=== PATIENT | female | born 1980 | race African-American/Black ===

== ENCOUNTER 2019-09-07 01:53 | Outpatient (CLI) | payer OTHER, SELFPAY ==
[2019-09-07 23:05] LABS: SARS-CoV-2 RNA PCR Negative
== END 2019-09-07 01:54 | disposition home or self-care (01) ==
LOC: ANHCOVIDDT 01:53
PROVIDERS: Visit Provider Obstetrics & Gynecology
DX: Z01.812 Encounter for preprocedural laboratory examination (principal); Z11.59 Encounter for screening for other viral diseases
CPT/HCPCS: 87635; C9803; U0003

== ENCOUNTER 2019-09-10 01:21 | Day surgery (SDC) | payer OTHER, SELFPAY ==
[2019-08-27 13:59] VITALS: BMI 34.9
[2019-09-10] VITALS (8 sets, daily range): BP systolic 113–141; BP diastolic 64–81; PULSE 53–77; RESP 10–18; TEMP 36.1–36.6; O2SAT 96–100
[2019-09-10] MEDS: ACETAMINOPHEN 500 MG TABLET 1000 MG PO (06:25)
[2019-09-10] MEDS: LACTATED RINGERS 1,000 ML 30 ML IV CONT ×2 (06:30→08:13)
[2019-09-10] MEDS: KETOROLAC 15 MG/ML VIAL (*BKC) IV PUSH (06:30)
--- NOTE | 2019-09-10 06:46 | WPDHPUPDATE1 ---
History and Physical Update Update Date/Time: 09/10/19 06:46 History and Physical has been reviewed, including an updated exam of the patient. There are NO changes in the patient's condition. Risks, benefits, and alternatives have been discussed and questions answered. Patient agrees to proceed with procedure.
--- NOTE | 2019-09-10 07:04 | WPDANESEPPF ---
Anes - Initial Pre Proc Eval Procedure: Operation Date: 09/10/19 07:30 Proposed Procedures p Laparoscopic Bilateral Tubal Sterilization With Cautery - Michele Crane MD s Hysteroscopy With Ablation - Michele Crane MD Date/Time: 09/10/19 07:04 Surgeon: Michele Crane MD Pre Op Diagnosis: Female Sterilization, Menorrhagia Patient Data Age: 39 Gender: F Height: 5 ft 3 in Weight: 88.1 kg Last Vital Signs Temp 97.8 F 09/10/19 06:16 Pulse 77 09/10/19 06:16 Resp 18 09/10/19 06:16 BP 123/73 09/10/19 06:16 Pulse Ox 99 09/10/19 06:16 Allergies Allergy/AdvReac Type Severity Reaction Status Date / Time No Known Allergies Allergy Mild Unverified 09/10/19 07:01 Home Medications Medication Instructions Recorded Confirmed Type No Home Medications 08/27/19 08/27/19 History Patient hx anesthesia problems: none Family hx anesthesia problems: none [facility] Past Medical History Medical History (Updated 09/10/19 @ 07:04 by Bg Srivastava MD) Anemia Social History Social History Smoking packs per day: 0.5 Smoking cigarettes per day: 10.0 Years smoked: 15 Smoking pack-years: 7.50 Smoking status: Current every day smoker Tobacco type: cigarettes Alcohol intake: current Drinks per week: 1 Spiritual care concerns: No Anes - Eval Final PreProcedure Day of Procedure 09/10/19 07:04 Patient weight: normal Heart: regular rate and rhythm Lungs: clear to auscultation Airway: Mallampati scale class II Neurological: alert and oriented Last oral intake: >/= 8 hours ASA classification: II Emergent: no Anesthetic plan: proceed Anesthesia type and monitoring: general ETT and standard monitoring Informed Consent: The patient's anesthetic plan and its attendant risks and benefits were discussed with the patient/family/POA. Questions were solicited and answers provided to the satisfaction of the patient/family/POA.
--- NOTE | 2019-09-10 08:06 | SUR.OPER ---
250ns in, 200ns out. aware
--- NOTE | 2019-09-10 08:28 | P.OP_ITS ---
Procedure Note - Detailed Date of procedure: 09/10/19 Pre-op diagnosis: Female Sterilization, Menorrhagia Post-op diagnosis: same Procedure performed: Laparoscopic bilateral tubal ligation, Endometrial Ablation Description of procedure: Patient was taken the operating room. She has prepped draped in the dorsal lithotomy position after induction of general anesthesia. A 5 mm abdominal incision was made in left upper quadrant of the abdomen with scalpel. A 5 mm trocars inserted the intra-abdominal cavity under direct visualization of the scope. Pneumoperitoneum was achieved. A 5 mm periumbilical incision was made using a scalpel on the abdominal scan. A 5 mm trocar was inserted the intra-abdominal cavity under visualization of the scope. The fallopian tube was grasped with the bipolar cautery in the ampullary region. It was completely desiccated in a 1.5 cm area of the fallopian tube. This was performed in identical fashion on the contralateral side. The instruments were withdrawn. The pneumoperitoneum was reduced. The trocars were removed. The skin was closed with subcuticular 4 Monocryl. This incisions were covered with Dermabond. Our attention was then turned to the endometrial ablation portion of the proc edure. A speculum was placed in the vagina. The cervix was grasped with a tenaculum. The cervix was dilated to approximately 8 mm with Lovelace dilators. The hysteroscope was inserted. And the below findings were noted. Measurements of the cervix were taken using the uterine sound and the hysteroscope. The intrauterine cavity measurements were entered into the hand piece of the device. The device was inserted the intrauterine cavity. The array was expanded. The balloon cuff was inflated. The uterus was airtight. The energy and safety cycles within initiated. They were completed under 3 minutes. The balloon cuff was collapsed, the array was collapsed, and the device was removed the uterine cavity. the hysteroscope was reinserted and the cavity was well desiccated, it was clearly observed. Hysteroscope was withdrawn. The tenaculum was removed. The speculum was removed. The patient tolerated the procedure well. She was taken to recover room in stable condition. Anesthesia: GETA Surgeon: Michele Crane MD Estimated blood loss (mL): 10 Drains: No Packing: No Pathology: none sent Complications: No immediate complications Condition: stable Disposition: PACU Findings: Normal female pelvic anatomy. Normal vulva, vagina and endometrial cavity. Well desiccated endometrial cavity at the end of the procedure.
[2019-09-10 09:46] LABS: Hematocrit 30.9 % (37.0-47.0); Hemoglobin 9.5 g/dL (12.0-15.0); Mean Corpuscular HGB Conc 30.7 g/dl (32-36); Mean Corpuscular Hemoglobin 22.3 pg (26-34); Mean Corpuscular Volume 72.5 fl (80-100); Mean Platelet Volume 11.1 fl (7.4-10.4); Platelet Count Result 292 k/mm3 (150-375); Red Blood Count 4.26 M/mm3 (4.2-5.4); Red Cell Distribution Width 18.1 % (11.5-14.5); White Blood Count 6.8 K/mm3 (4.5-10.0)
== END 2019-09-10 10:01 | disposition home or self-care (01) ==
PROVIDERS: Visit Provider Obstetrics & Gynecology
PROC: (CPT 58671; principal; 2019-09-10 07:30)
PROC: 0U5B8ZZ Destruction of Endometrium, Via Natural or Artificial Opening Endoscopic (ICD-10-PCS; CPT 58563; 2019-09-10 07:30)
DX: Z30.2 Encounter for sterilization (principal); N92.0 Excessive and frequent menstruation with regular cycle; F17.210 Nicotine dependence, cigarettes, uncomplicated
CPT/HCPCS: 58670; 58563; 36415; 85027; A9270; J0330; J1100; J1885; J2250; J2405; J2704; J3010; J7120

== ENCOUNTER 2020-07-04 21:56 | Emergency (ER) | payer OTHER, SELFPAY ==
--- NOTE | ~2020-07-04 | CT_ITS ---
EXAMINATION: CT abdomen pelvis w con DATE: 07/05/2020 00:06 INDICATION: Left lower quadrant abdominal pain TECHNIQUE: Computed tomography (CT) of the abdomen and pelvis was performed with 100 mL Omnipaque-350 intravenous contrast. Automated exposure control and iterative reconstruction technique were employe d. The dose-length product was 815.09 mGy-cm. COMPARISON: None FINDINGS: Minimal dependent atelectasis in the bilateral lower lobes. Heart size is normal. No pericardial or p leural effusion. A couple indeterminate hepatic lesions, the larger measuring 1.7 cm which are greate r than fluid attenuation but of lower attenuation in the surrounding contrast-enhanced liver. Gallbla dder, spleen, pancreas, bilateral adrenal glands and right kidney are normal. There are couple subcen timeter low-attenuation left renal cyst. 2.9 cm subserosal fibroid along the anterior lower uterine s egment. Mild wall thickening of the incompletely distended bladder. Bowels including the appendix are normal. Small amount of likely physiologic free fluid in the cul-de-sac. No pathologically enlarged abdominal or pelvic lymphadenopathy. Small bone island at the right femoral head. IMPRESSION: 1. Mild wall thickening in the incompletely distended bladder which could be due to partially decompr essed state or cystitis. Correlate with urinalysis. 2. Small amount of likely physiologic free fluid in the cul-de-sac. 3. Couple indeterminate hepatic lesions the larger measuring 1.7 cm which in the absence of known leandra er disease or primary malignancy are most likely benign. Consider further evaluation with pre and pos tcontrast MRI. 4. Fibroid uterus. Reviewed, dictated and finalized at location A. IMPRESSION: 1. Mild wall thickening in the incompletely distended bladder which could be du e to partially decompressed state or cystitis. Correlate with urinalysis. 2. Small amount of likely physiologic free fluid in the cul-de-sac. 3. Couple indeterminate hepatic lesions the larger measuring 1.7 cm which in th e absence of known liver disease or primary malignancy are most likely benign. Consider further evaluation with pre and postcontrast MRI. 4. Fibroid uterus.
[2020-07-04 22:42] VITALS: BP 127/73; PULSE 66; RESP 16; TEMP 36.1; O2SAT 97
--- NOTE | 2020-07-04 23:04 | PC.NURSE ---
Patient states she has had her tubes tied and ablated.
--- NOTE | 2020-07-04 23:25 | ED.ABDPAIN ---
HPI - Abdominal Pain General Chief Complaint: Abdominal Pain Stated Complaint: abd pain Time Seen by Provider: 07/04/20 23:22 History of Present Illness HPI narrative: Abdominal pain since yesterday. LLQ along the inguinal ligament. Started yesterday after having a bowel movmeent. [place] like a severe menstraul cramp, but never went away. Associated with nausea when the pain is severe. Treid Midol with mild improvement. She reports that she had something similar in the past and she had to take antibiotics, but she is not sure what it was that she had. Related Data Allergies Allergy/AdvReac Type Severity Reaction Status Date / Time No Known Allergies Allergy Mild Verified 07/04/20 23:05 Review of Systems Review of Systems: All systems reviewed & are unremarkable except as noted in HPI and below Constitutional: Constitutional: Denies chills and Denies fever(s) Cardiovascular: Cardiovascular: Denies chest pain Respiratory: Respiratory: Denies dyspnea Genitourinary: Genitourinary: Denies hematuria, Reports nocturia and Denies dysuria Musculoskeletal: Musculoskeletal: Denies back pain Neurologic: Reports system reviewed and no additional complaints, except as documented [facility] Past Medical History Medical History Anemia Social History Social History Smoking packs per day: 0.5 Smoking cigarettes per day: 10.0 Years smoked: 15 Smoking pack-years: 7.50 Smoking status: Current every day smoker Tobacco type: cigarettes Alcohol intake: current Drinks per week: 1 Gender identity (if verbalized by the patient): Female Spiritual care concerns: No Exam Const: General: healthy appearing, no acute distress and alert Orientation/consciousness: patient oriented x3 HENMT: Head: normal to inspection Neck: Neck: normal visual inspection Resp: Effort & Inspection: normal respiratory effort Auscultation: clear to auscultation bilaterally, no rales, no rhonchi and no wheezes Cardio: Jugular venous distension: no JVD Rate: regular rate Rhythm: regular rhythm Heart sounds: no murmurs GI: Inspection: non-distended GI Palp: Yes Soft to palpation, Yes Tenderness to palpation present (GI) (mild, LLQ), No Guarding due to palpation present (GI) and No Rebound tenderness present Auscultation: normal bowel sounds Skin: General skin exam: normal color Neuro: General: patient oriented x3 and moves all extremities Speech: normal speech Extrem: General: normal to inspection and no edema Psych: Appearance: grossly normal and well kempt Mental Status: mental status grossly normal Affect: normal affect Attitude: cooperative Course Vital Signs Vital signs: Vital Signs Temperature 36.1 C L 07/04/20 22:42 Pulse Rate 66 07/04/20 22:42 Respiratory Rate 16 07/04/20 22:42 Blood Pressure 127/73 07/04/20 22:42 Pulse Oximetry 97 07/04/20 22:42 Temperature 36.1 C L 07/04/20 22:42 Pulse Rate 60 07/05/20 01:42 Respiratory Rate 18 07/05/20 01:42 Blood Pressure 135/88 07/05/20 01:42 Pulse Oximetry 97 07/05/20 01:42 MDM - Abdominal Pain MDM Narrative Medical decision making narrative: UA suspicious for UTI. CT also shows bladder wall thickening. Differential Diagnosis Differential diagnosis: Likely calculus of kidney, constipation, diverticulitis and other (UTI) Medical Records Attestation: I reviewed the patient's medical records. Lab Data Attestation: I reviewed the patient's lab results. Result diagrams: 07/04/20 23:21 07/04/20 23:21 Labs: Lab Results 07/04/20 07/04/20 07/04/20 Range/Units 23:21 23:21 23:21 WBC 9.5 (4.5-10.0) K/mm3 RBC 4.43 (4.2-5.4) M/mm3 Hgb 11.7 L (12.0-15.0) g/dL Hct 36.0 L (37.0-47.0) % MCV 81.3 (80-100) fl MCH 26.4 (26-34) pg MCHC 32.5 (32-36) g/dl RDW 14.4 (11.5-14.5
[2020-07-04 23:36] LABS: Basophils Percent Auto 0.3 % (0.2-1.2); Eosinophils Absolute Auto 0.1 K/mm3 (0-0.3); Eosinophils Percent Auto 1.3 % (0-4.4); Hemoglobin 11.7 g/dL (12.0-15.0); Immature Granulocyte Absolute 0.02 K/mm3 (0.00-0.031); Immature Granulocyte Percent A 0.2 % (0-0.5); Lymphocytes Absolute Auto 3.35 K/mm3 (0.9-3.2); Lymphocytes Percent Auto 35.4 % (18.3-44.2); Mean Corpuscular HGB Conc 32.5 g/dl (32-36); Mean Corpuscular Hemoglobin 26.4 pg (26-34); Mean Corpuscular Volume 81.3 fl (80-100); Mean Platelet Volume 11.4 fl (7.4-10.4); Monocytes Absolute Auto 0.7 K/mm3 (0.1-0.6); Monocytes Percent Auto 7.6 % (2.6-8.5); Neutrophils Absolute Auto 5.2 K/mm3 (1.3-6.7); Neutrophils Percent Auto 55.2 % (45.5-73.1); Platelet Count Result 320 k/mm3 (150-375); Red Blood Count 4.43 M/mm3 (4.2-5.4); Red Cell Distribution Width 14.4 % (11.5-14.5); White Blood Count 9.5 K/mm3 (4.5-10.0)
[2020-07-04 23:39] LABS: Alanine Aminotransferase 13 U/L (4-35); Albumin Level 3.8 g/dL (3.5-5.1); Alkaline Phosphatase 57 U/L (38-126); Anion Gap 6 mmol/L (8-16); Aspartate Amino Transferase 26 U/L (14-36); Bilirubin,Total 0.3 mg/dL (0.2-1.3); Blood Urea Nitrogen 13 mg/dL (7-17); Calcium 9.5 mg/dL (8.4-10.2); Carbon Dioxide 24 mmol/L (22-30); Chloride 110 mmol/L (98-107); Estimated CRCL calculation 87 ml/min; Estimated Glomerular Filt Rate > 60; Glucose 109 mg/dL (65-105); Lipase 46 U/L (23-300); Potassium 3.6 mmol/L (3.4-5.0); Sodium 140 mmol/L (137-145)
[2020-07-04 23:41] LABS: Add Urine Microscopic? YES; Appearance Urine Cloudy (Clear); Bacteria Urine Trace /hpf; Bilirubin Urine Negative (Negative); Blood Urine 1+ (Negative); Color Urine Yellow (Yellow); Glucose Urine UA Negative (Negative); Ketones Urine Negative (Negative); Leukocyte Esterase Ur 2+ LEU/UL (Negative); Mucus Urine Rare /lpf; Nitrate Urine Negative (Negative); Protein Urine Negative (Negative); Specific Grav Ur 1.023 (1.001-1.035); Squamous Epithelial Cell Urine Many /hpf (Few)
--- NOTE | 2020-07-04 23:53 | PC.NURSE ---
Patient being taken to CT.
[2020-07-05] VITALS (9 sets, daily range): BP systolic 130–141; BP diastolic 67–93; PULSE 60–62; RESP 18; O2SAT 94–100
[2020-07-05] MEDS: MORPHINE SULFATE (*CRX) 2 MG/ML INJ IV PUSH (00:17)
[2020-07-05] MEDS: NITROFURANTOIN MONOHYD MACROCR 100 MG CAP PO (00:54)
== END 2020-07-05 01:40 | disposition home or self-care (01) ==
PROVIDERS: Emergency Provider Emergency Medicine
DX: N39.0 Urinary tract infection, site not specified (principal); D64.9 Anemia, unspecified; F17.210 Nicotine dependence, cigarettes, uncomplicated; D25.9 Leiomyoma of uterus, unspecified; K76.9 Liver disease, unspecified
CPT/HCPCS: 36415; 74177; 80053; 81001; 81025; 83690; 85025; 87077; 87086; 87088; 87186; 96374; 99284; A9270; J2270; Q9967

== ENCOUNTER 2020-08-20 15:49 | Emergency (ER) | payer OTHER, SELFPAY ==
--- NOTE | ~2020-08-20 | CT_ITS ---
EXAMINATION: CT abdomen pelvis w con DATE: 08/20/2020 18:50 INDICATION: Right-sided groin pain for one day TECHNIQUE: Computed tomography (CT) of the abdomen and pelvis was performed with 100 cc Omnipaque 350 intravenous contrast. The dose-length product was 571.84 mGy-cm. Automated exposure control and iter ative reconstruction technique were employed. COMPARISON: CT dated dated 07/04/2020. FINDINGS: There is dependent atelectasis of the lung bases. There are stable hypovascular lesions of the liver, likely benign. No significant vascular abnormality. No lymphadenopathy. There are multiple enhancing and hypoenhancing masses of the uterus, consistent with fibroids. The spleen, pancreas, adrenal glands and kidneys are unremarkable. Gallbladder is present. Nonobstruc tive bowel gas pattern. Small amount of free fluid in the pelvis. Bladder is unremarkable. No lymphad enopathy. No free air. No acute osseous abnormality. IMPRESSION: 1. No acute abdominal abnormality. 2: Fibroid uterus. Reviewed, dictated and finalized at location A.
--- NOTE | ~2020-08-20 | US_ITS ---
EXAMINATION: US pelvic complete w TV DATE: 08/20/2020 17:27 INDICATION: Left lower quadrant pain for 2 days Comparison:No prior studies for comparison. TECHNIQUE: Multiple transabdominal and endovaginal sonographic images of the pelvis performed. FINDINGS: The uterus measures 7.5 x 6.7 x 5.1 cm. The endometrial complex is not clearly visualized. There are no multiple nabothian cyst. There are multiple uterine fibroids, largest measuring up to 2. 7 cm. The right ovary measures 2.5 x 2.4 x 2 cm and the left ovary measures 3.5 x 2.1 x 1.7 cm. There are small follicles in each ovary. Normal doppler signal in both ovaries. There is no free fluid in the pelvis. There are no abnormal masses seen on either side. IMPRESSION: 1. Multiple uterine fibroids, largest measuring up to 2.7 cm. Endometrium is obscured by fibroid larson ges. Reviewed, dictated and finalized at location A. IMPRESSION: 1. Multiple uterine fibroids, largest measuring up to 2.7 cm. Endometrium is ob scured by fibroid changes.
[2020-08-20 16:06] VITALS: BP 147/90; PULSE 59; RESP 20; O2SAT 99
--- NOTE | 2020-08-20 16:24 | ED.ABDPAIN ---
HPI - Abdominal Pain General Chief Complaint: Abdominal Pain Stated Complaint: abdominal pain Time Seen by Provider: 08/20/20 16:00 Source: patient Mode of arrival: ambulatory Limitations: no limitations History of Present Illness HPI narrative: This is a 40 year old female that presents to the ER for LLQ abd/pelvic pain present since this morning. Reports a constant aching/pressure like pain. Reports it kind of feels like menstrual cramping. Reports it has worsened since onset which prompted her to be seen. Reports she had a similar occurrence earlier this year for which she was seen in the ER and was diagnosed with a UTI and followed up with her OB who reported she has fibroids. Denies fever, vomiting, diarrhea, hematochezia, dysuria or hematuria. Related Data Allergies Allergy/AdvReac Type Severity Reaction Status Date / Time No Known Allergies Allergy Mild Verified 08/20/20 20:11 Review of Systems Review of Systems: Narrative: CONSTITUTIONAL: Denies fever GASTROINTESTINAL: Reports abdominal pain, nausea. Denies vomiting, or diarrhea. GENITOURINARY: Denies dysuria or hematuria. All systems reviewed & are unremarkable except as noted in HPI and below PMFSH Past Medical History Medical History (Updated 08/20/20 @ 20:15 by Sruthi Child PA-C) Anemia Surgical History Surgical History (Updated 08/20/20 @ 16:30 by Sruthi Child PA-C) History of tubal ligation Social History Social History Smoking packs per day: 0.5 Smoking cigarettes per day: 10.0 Years smoked: 15 Smoking pack-years: 7.50 Smoking status: Current every day smoker Tobacco type: cigarettes Alcohol intake: current Drinks per week: 1 Gender identity (if verbalized by the patient): Female Spiritual care concerns: No Exam Narrative: Exam Narrative: GENERAL: Well-appearing, well-nourished, and in no acute distress. HEAD: Normocephalic, atraumatic. EYES: EOMI. CHEST: Clear to auscultation. No respiratory distress. No wheezes rales or rhonchi HEART: Regular rate and rhythm. No murmur heard. Normal peripheral pulses. ABDOMEN: Soft, nondistended, normal active bowel sounds. Tender to palpation in the LLQ, without guarding. No CVA tenderness EXTREMITIES: Normal range of motion. No edema. SKIN: Warm, dry, no rash. NEURO: No focal deficits. Alert and oriented x3. PSYCH: Normal mood and affect PELVIC: Normal external genitalia. Normal appearing cervix. Small amount of white cervical discharge. No CMT Course Vital Signs Vital signs: Vital Signs Pulse Rate 59 L 08/20/20 16:06 Respiratory Rate 20 08/20/20 16:06 Blood Pressure 147/90 H 08/20/20 16:06 Pulse Oximetry 99 08/20/20 16:06 Pulse Rate 59 L 08/20/20 18:57 Respiratory Rate 18 08/20/20 18:57 Blood Pressure 104/65 08/20/20 18:57 Pulse Oximetry 99 08/20/20 18:57 MDM - Abdominal Pain MDM Narrative Medical decision making narrative: Patient presents to the ER for left sided lower abdominal/pelvic pain. She is afebrile and nontoxic appearing. Vitals are stable. CBC is without leukocytosis. Metabolic panel without acute findings. UA with 4-6 WBCs, and leuk esterase, but also many squamous epithelial cells. Suspect a contaminated catch as patient is asymptomatic. Will send this for a culture. Pelvic exam is normal. Trichomonas was negative. Chlamydia/gonorrhea and genital culture were sent. Patient would like to follow-up for results. Does not wish to be presumptively treated. Pelvic US shows multiple uterine fibroids. No acute adnexal abnormality. Normal vascular flow to the ovaries. CT scan of the abdomen and pelvis is without acute findings. Patient was updated on case findings. Instructed to follow-up with her encapsulator for further results and evaluation. She is stable and felt appropriate for further outpatient evaluation. She was given warnings to return to the ER Lab Data Attestation:
[2020-08-20 16:34] LABS: Basophils Percent Auto 0.2 % (0.2-1.2); Eosinophils Absolute Auto 0.1 K/mm3 (0-0.3); Eosinophils Percent Auto 0.6 % (0-4.4); Hematocrit 38.9 % (37.0-47.0); Hemoglobin 12.2 g/dL (12.0-15.0); Immature Granulocyte Absolute 0.03 K/mm3 (0.00-0.031); Immature Granulocyte Percent A 0.4 % (0-0.5); Lymphocytes Percent Auto 26.1 % (18.3-44.2); Mean Corpuscular HGB Conc 31.4 g/dl (32-36); Mean Corpuscular Hemoglobin 26.3 pg (26-34); Monocytes Absolute Auto 0.5 K/mm3 (0.1-0.6); Monocytes Percent Auto 6.2 % (2.6-8.5); Neutrophils Absolute Auto 5.6 K/mm3 (1.3-6.7); Neutrophils Percent Auto 66.5 % (45.5-73.1); Platelet Count Result 289 k/mm3 (150-375); Red Blood Count 4.63 M/mm3 (4.2-5.4); Red Cell Distribution Width 14.6 % (11.5-14.5); White Blood Count 8.4 K/mm3 (4.5-10.0)
[2020-08-20 16:48] LABS: Alanine Aminotransferase 14 U/L (4-35); Albumin Level 4.2 g/dL (3.5-5.1); Alkaline Phosphatase 69 U/L (38-126); Anion Gap 9 mmol/L (8-16); Aspartate Amino Transferase 31 U/L (14-36); Bilirubin,Total 0.9 mg/dL (0.2-1.3); Blood Urea Nitrogen 11 mg/dL (7-17); Calcium 9.5 mg/dL (8.4-10.2); Carbon Dioxide 23 mmol/L (22-30); Chloride 105 mmol/L (98-107); Estimated CRCL calculation 113 ml/min; Estimated Glomerular Filt Rate > 60; Glucose 86 mg/dL (65-105); Lipase 37 U/L (23-300); Sodium 137 mmol/L (137-145)
[2020-08-20] MEDS: MORPHINE SULFATE (*CRX) 4 MG/ML INJ IV PUSH (17:19)
[2020-08-20] MEDS: ONDANSETRON INJ 4 MG/2 ML VIAL IV PUSH (17:19)
[2020-08-20 17:45] VITALS: BP 130/77; PULSE 56; RESP 18; O2SAT 98
[2020-08-20 18:28] LABS: Add Urine Microscopic? YES; Appearance Urine Cloudy (Clear); Bacteria Urine Trace /hpf; Bilirubin Urine Negative (Negative); Blood Urine 2+ (Negative); Color Urine Yellow (Yellow); Glucose Urine UA Negative (Negative); Ketones Urine 1+ mg/dL (Negative); Leukocyte Esterase Ur 2+ LEU/UL (Negative); Mucus Urine Rare /lpf; Nitrate Urine Negative (Negative); Protein Urine Negative (Negative); RBC Urine 21-50 /hpf (0-2); Squamous Epithelial Cell Urine Many /hpf (Few)
[2020-08-20 18:57] VITALS: BP 104/65; PULSE 59; RESP 18; O2SAT 99
[2020-08-20 20:08] VITALS: BP 119/73; PULSE 60; RESP 20; O2SAT 100
== END 2020-08-20 20:27 | disposition home or self-care (01) ==
PROVIDERS: Physician Assistant; Emergency Provider Emergency Medicine
DX: R10.2 Pelvic and perineal pain (principal); F17.210 Nicotine dependence, cigarettes, uncomplicated
CPT/HCPCS: 36415; 74177; 76830; 76856; 80053; 81001; 81025; 83690; 85025; 87070; 87086; 87088; 87491; 87591; 87808; 96374; 96375; 99284; J0131; J2270; J2405; Q9967

== ENCOUNTER 2020-10-28 02:42 | Day surgery (SDC) | payer OTHER, SELFPAY ==
[2020-10-15 12:16] VITALS: BMI 36.6
--- NOTE | 2020-10-28 07:29 | WPDANESEPPF ---
Anes - Initial Pre Proc Eval Procedure: Operation Date: 10/28/20 12:15 Proposed Procedures p Colonoscopy - Mykel Robertson MD Date/Time: 10/28/20 07:29 Surgeon: Mykel Robertson MD Pre Op Diagnosis: left lower abdominal quadrant pain Patient Data Age: 40 Gender: F Height: 1.57 m Weight: 90.9 kg Allergies Allergy/AdvReac Type Severity Reaction Status Date / Time No Known Allergies Allergy Mild Verified 10/28/20 11:27 Home Medications Medication Instructions Recorded Confirmed Type bupropion HCl 150 mg 24 hr tablet, 150 mg PO QAM #30 tablet 08/26/20 10/15/20 Rx extended release Patient hx anesthesia problems: none Family hx anesthesia problems: none PMFSH Past Medical History Medical History (Updated 10/28/20 @ 07:30 by Mac Palomino DO) Anemia Anxiety BMI 36.0-36.9,adult Constipation Depression Encounter to establish care History of colitis LLQ abdominal pain Tobacco abuse Surgical History Surgical History History of tubal ligation Family History Family History Father Hypertension Mother Hypertension Thyroid disorder Grandparent Hypertension Grandparent Hypertension Social History Social History Smoking packs per day: 0.5 Smoking cigarettes per day: 10.0 Years smoked: 12 Smoking pack-years: 6.00 Smoking status: Current every day smoker Tobacco type: cigarettes Alcohol intake: current Drinks per week: 1 Substance use: never Substance use type: does not use Living arrangements: with family Gender identity (if verbalized by the patient): Female Spiritual care concerns: No Anes - Eval Final PreProcedure Day of Procedure 10/28/20 07:29 Patient weight: obese Heart: regular rate and rhythm Lungs: clear to auscultation and normal air movement Airway: Mallampati scale class II Neurological: alert and oriented Last oral intake: >/= 8 hours ASA classification: II Emergent: no Anesthetic plan: proceed Anesthesia type and monitoring: general GIVS and standard monitoring Informed Consent: The patient's anesthetic plan and its attendant risks and benefits were discussed with the patient/family/POA. Questions were solicited and answers provided to the satisfaction of the patient/family/POA.
[2020-10-28 11:28] VITALS: BP 132/77; PULSE 65; RESP 18; TEMP 36; O2SAT 98; BMI 36.3
[2020-10-28] MEDS: LACTATED RINGERS 1,000 ML 150 ML IV CONT (11:43)
--- NOTE | 2020-10-28 12:03 | WPDHPUPDATE1 ---
History and Physical Update Update Date/Time: 10/28/20 12:03 History and Physical has been reviewed, including an updated exam of the patient. There are NO changes in the patient's condition. Risks, benefits, and alternatives have been discussed and questions answered. Patient agrees to proceed with procedure.
[2020-10-28 12:17] VITALS: BP 102/60; PULSE 79; RESP 16; O2SAT 97
[2020-10-28 12:27] VITALS: BP 90/59; PULSE 74; RESP 20; O2SAT 100
[2020-10-28 12:37] VITALS: BP 96/56; PULSE 64; RESP 19; O2SAT 100
== END 2020-10-28 12:46 | disposition home or self-care (01) ==
PROVIDERS: PCP Nurse Practitioner Family; Visit Provider Internal Medicine Gastroenterology
PROC: 0DJD8ZZ Inspection of Lower Intestinal Tract, Via Natural or Artificial Opening Endoscopic (ICD-10-PCS; CPT 45378; principal; 2020-10-28 12:15)
DX: R10.32 Left lower quadrant pain (principal); K64.8 Other hemorrhoids; F41.8 Other specified anxiety disorders; F17.210 Nicotine dependence, cigarettes, uncomplicated; E66.9 Obesity, unspecified; Z68.36 Body mass index [BMI] 36.0-36.9, adult
CPT/HCPCS: 45378; J2704; J7120

== ENCOUNTER 2021-11-12 09:11 | Outpatient (CLI) | payer OTHER, SELFPAY ==
--- NOTE | ~2021-11-12 | MM_ITS ---
EXAMINATION: MM screening philippe BI w mayra HISTORY: Screening mammogram TECHNIQUE: Craniocaudal and mediolateral oblique 3-D tomosynthesis images were obtained and synthetic 2-D images were generated. CAD analysis was submitted and interpreted. COMPARISON: No prior mammogram is available for comparison at this institution. BREAST PARENCHYMAL COMPOSITION: There are scattered areas of fibroglandular density. FINDINGS: There is no evidence of suspicious mass, calcification, or architectural distortion to sugg est malignancy in either breast. There has been no suspicious interval change. IMPRESSION: 1. No mammographic evidence of malignancy. 2. Recommend routine screening mammography in one year. BI-RADS Category 1: Negative Reviewed, dictated and finalized at location A.
== END 2021-11-12 09:12 | disposition home or self-care (01) ==
LOC: ANHIMG 09:12
PROVIDERS: PCP Nurse Practitioner Family; Visit Provider Nurse Practitioner Obstetrics & Gynecology
DX: Z12.31 Encounter for screening mammogram for malignant neoplasm of breast (principal)
CPT/HCPCS: 77063; 77067

== ENCOUNTER 2022-09-20 19:07 | Emergency (ER) | payer OTHER, SELFPAY ==
--- NOTE | ~2022-09-20 | CT_ITS ---
EXAMINATION: CT abdomen pelvis w con DATE: 09/20/2022 22:36 INDICATION: LLQ pain TECHNIQUE: Computed tomography (CT) of the abdomen and pelvis was performed with 100 mL Omnipaque-350 intravenous contrast. Automated exposure control and iterative reconstruction technique were employe d. The dose-length product was 908.73 mGy-cm. COMPARISON: 08/20/2020, 07/04/2020; pelvic ultrasound 08/20/2020. FINDINGS: Lower thorax: Unremarkable Liver: Stable cysts/hemangiomas Biliary/Gallbladder: Gallbladder is normal. No bile duct dilation. Pancreas: Mild atrophy. Spleen: Normal. Adrenals:No mass. Kidneys: Subcentimeter left lower pole hypodensity too small to characterize but most likely represen ts a cyst. No suspicious mass, obstructing stone, or hydronephrosis. GI tract: Mild distal esophageal and gastric wall edema. No small or large bowel dilation. Normal hoa endix. Mesentery/Peritoneum: No ascites, mass, or free air. Retroperitoneum: No mass. Pelvis: 3.1 x 4.2 x 5.2 cm multiloculated, peripherally enhancing fluid collection in the endometrial cavity of the uterine fundus. Suggestion of a tubular fluid-filled structure in the left adnexa. Mul tiple uterine fibroids. Normal urinary bladder. Small volume free pelvic fluid, within physiologic ra nge. Soft Tissues: Soft tissues and body wall unremarkable. Bones: No acute osseous finding. IMPRESSION: Multiloculated peripherally enhancing endometrial collection, may represent infection, carcinoma, ret ained products, or entrapped blood with uterine synechia. Possible enlargement of the left fallopian tube. Multiple uterine fibroids. Recommend pelvic ultrasound for further evaluation and gynecology consultation. Also consider pelvic MRI with and without contrast. Reviewed, dictated and finalized at [facility]. IMPRESSION: Multiloculated peripherally enhancing endometrial collection, may represent inf ection, carcinoma, retained products, or entrapped blood with uterine synechia. Possible enlargement of the left fallopian tube. Multiple uterine fibroids. Recommend pelvic ultrasound for further evaluation and gynecology consultation. Also consider pelvic MRI with and without contrast.
--- NOTE | ~2022-09-20 | US_ITS ---
Pelvic ultrasound. Clinical History: Abnormal uterus on CT scan Technique: Realtime transabdominal and transvaginal scanning of the pelvis was performed. Color flow Doppler and Doppler spectral analysis were performed. COMPARISON: CT performed earlier on 09/20/2022 Findings: The uterus is anteverted, and measures 8.9 x 6.4 x 7.9 cm. There is a complex area centrall y in the uterus measuring up to approximately 3.6 x 5.1 x 5.2 cm overall, with multiple complex cysti c areas within this lesion. Probable exophytic left-sided fibroid measures 4.8 x 3.8 x 5.2 cm. The right ovary measures 3.3 x 2.1 x 2.9 cm. No significant right ovarian or adnexal mass is seen. The left ovary measures 2.9 x 1.0 x 2.6 cm. No significant left ovarian or adnexal mass is seen. There is small amount of free fluid in the cul de sac. Impression: 5.2 x 3.6 x 5.1 cm area of complex cystic appearance centrally in the uterus, which correlates with f indings on CT scan performed earlier today. Precise etiology remains unclear, with diagnostic conside rations including hematoma/blood products, abscess,, necrotic/degenerative fibroid, or possibly other necrotic neoplasm. Consider hysteroscopy or other additional gynecologic workup/intervention. Additional probable left-sided exophytic fibroid measuring up to 5.2 cm in maximum diameter. Reviewed, dictated and finalized at [facility]. Impression: 5.2 x 3.6 x 5.1 cm area of complex cystic appearance centrally in the uterus, w hich correlates with findings on CT scan performed earlier today. Precise etiol ogy remains unclear, with diagnostic considerations including hematoma/blood pr oducts, abscess,, necrotic/degenerative fibroid, or possibly other necrotic brian plasm. Consider hysteroscopy or other additional gynecologic workup/interventio n. Additional probable left-sided exophytic fibroid measuring up to 5.2 cm in maxi mum diameter.
[2022-09-20 19:10] VITALS: BP 140/85; PULSE 80; RESP 16; TEMP 36.3; O2SAT 100
[2022-09-20 19:38] LABS: Alanine Aminotransferase 20 U/L (6-35); Albumin Level 4.3 g/dL (3.5-5.1); Alkaline Phosphatase 77 U/L (38-126); Anion Gap 10 mmol/L (8-16); Aspartate Amino Transferase 27 U/L (14-36); Bilirubin,Total 0.6 mg/dL (0.2-1.3); Blood Urea Nitrogen 11 mg/dL (7-17); Calcium 9.5 mg/dL (8.4-10.2); Carbon Dioxide 25 mmol/L (22-30); Chloride 103 mmol/L (98-107); Estimated CRCL calculation 117 ml/min; Estimated Glomerular Filt Rate > 60; Glucose 109 mg/dL (65-110); Lipase 36 U/L (23-300); Potassium 3.8 mmol/L (3.4-5.0); Sodium 138 mmol/L (137-145)
[2022-09-20 19:39] LABS: Basophils Percent Auto 0.3 % (0.2-1.2); Eosinophils Absolute Auto 0.1 K/mm3 (0-0.3); Eosinophils Percent Auto 0.5 % (0-4.4); Hematocrit 39.8 % (37.0-47.0); Hemoglobin 12.9 g/dL (12.0-15.0); Immature Granulocyte Absolute 0.16 K/mm3 (0.00-0.031); Immature Granulocyte Percent A 1.5 % (0-0.5); Lymphocytes Absolute Auto 2.45 K/mm3 (0.9-3.2); Lymphocytes Percent Auto 23.4 % (18.3-44.2); Mean Corpuscular HGB Conc 32.4 g/dl (32-36); Mean Corpuscular Hemoglobin 27.3 pg (26-34); Mean Corpuscular Volume 84.3 fl (80-100); Mean Platelet Volume 10.7 fl (7.4-10.4); Monocytes Absolute Auto 0.7 K/mm3 (0.1-0.6); Monocytes Percent Auto 6.5 % (2.6-8.5); Neutrophils Absolute Auto 7.1 K/mm3 (1.3-6.7); Neutrophils Percent Auto 67.8 % (45.5-73.1); Platelet Count Result 281 k/mm3 (150-375); Red Blood Count 4.72 M/mm3 (4.2-5.4); Red Cell Distribution Width 13.3 % (11.5-14.5); White Blood Count 10.5 K/mm3 (4.5-10.0)
[2022-09-20 20:08] LABS: Appearance Urine Clear (Clear); Bacteria Urine None Seen /hpf; Bilirubin Urine Negative (Negative); Blood Urine 2+ (Negative); Color Urine Yellow (Yellow); Glucose Urine UA Negative (Negative); Ketones Urine Negative (Negative); Leukocyte Esterase Ur Negative LEU/UL (Negative); Nitrate Urine Negative (Negative); Non Pathogenic Casts 0-2; Protein Urine Negative (Negative); RBC Urine 21-50 /hpf (0-2); Specific Grav Ur 1.021 (1.001-1.035); Squamous Epithelial Cell Urine Occasional /hpf (Few); WBC Urine 0-5 /hpf
[2022-09-20 20:09] LABS: Add Urine Microscopic? YES
[2022-09-20 21:36] VITALS: BP 131/62; PULSE 67; RESP 17; O2SAT 99
--- NOTE | 2022-09-20 21:46 | ED.ABDPAIN ---
HPI - Abdominal Pain General Chief Complaint: Abdominal Pain <ALBERTO Katz Last Filed: 09/21/22 02:02> Stated Complaint: abdominal pain on left side <ALBERTO Katz Last Filed: 09/21/22 02:02> Time Seen by Provider: 09/20/22 21:28 <Mary Grace Silveira PA-C - Last Filed: 09/21/22 02:02> History of Present Illness HPI narrative: 42-year-old female with a history of uterine fibroids reports for evaluation for left lower quadrant abdominal pain today. Patient states this pain feels like her normal fibroid pain that starts in the lateral proximal left femur and travels to her left lower quadrant, however she states this pain is worse than her normal pain. Patient reports she was prescribed Flexeril and Celebrex which she has taken today without her normal relief. She reports nausea, no vomiting. Last bowel movement yesterday was normal. Denies fever, chest pain or shortness of breath, back pain, dysuria or hematuria, vaginal bleeding or discharge, concern for STDs. She states he has an appoint with her [facility], Dr. Crane, tomorrow. <ALBERTO Katz Last Filed: 09/21/22 02:02> Related Data Home Medications: Home Medications Medication Instructions Recorded Confirmed ferrous sulfate 325 mg (65 mg 325 mg PO . twice weekly 11/24/21 06/01/22 iron) tablet,delayed release celecoxib [Celebrex] PO 06/01/22 06/01/22 cyclobenzaprine PO 06/01/22 06/01/22 <Mary Grace Silveira PA-C - Last Filed: 09/21/22 02:02> Allergies/Adverse Reactions: Allergies Allergy/AdvReac Type Severity Reaction Status Date / Time No Known Allergies Allergy Mild Verified 09/20/22 21:37 <ALBERTO Katz Last Filed: 09/21/22 02:02> Review of Systems Review of Systems: CONSTITUTIONAL: Denies fever, chills EYES: Denies visual changes, redness, or discharge. ENT: Denies rhinorrhea, congestion, sore throat, or otalgia. CARDIOVASCULAR: Denies chest pain, palpitations, or edema. RESPIRATORY: Denies cough or dyspnea. GASTROINTESTINAL: See HPI GENITOURINARY: See HPI SKIN: Denies rash or itching. MUSCULOSKELETAL: Denies back pain, joint pain, or myalgia. NEUROLOGIC: Denies headache, numbness, dizziness, or weakness. PSYCHIATRIC: Denies anxiety or depression. <Mary Grace Silveira PA-C - Last Filed: 09/21/22 02:02> [facility] Past Medical History Medical History: Medical History Anemia Hemoglobin 13.1 with iron 36 with 10% saturation and ferritin 29 with vitamin B12 498 and folic acid 12.1 on 11/22/2021. Anxiety BMI 36.0-36.9,adult BMI 37.0-37.9, adult BMI 38.0-38.9,adult BMI 39.0-39.9,adult Constipation Depression Encounter for wellness examination in adult Encounter to establish care Folic acid deficiency Folic acid low at 4.0 with hemoglobin 13.3 and hematocrit 40.1 on 05/25/2021. Iron normal at 83 with 22% saturation with vitamin B12 485. Folic acid 12.1 with hemoglobin 13.1 on 11/22/2021. Hematuria History of colitis Iron deficiency anemia, unspecified iron 36 with 10% saturation and ferritin 29 with hemoglobin 13.1 and MCV 84 11/22/2021. LLQ abdominal pain Lump of left thigh Obesity (BMI 30-39.9) Tobacco abuse Uterine fibroid <Mary Grace Silveira PA-C - Last Filed: 09/21/22 02:02> Surgical History Surgical History: Surgical History History of tubal ligation <Mary Grcae Silveira PA-C - Last Filed: 09/21/22 02:02> Family History Family History: Family History Father Hypertension Mother Hypertension Thyroid disorder Grandparent Hypertension Grandparent Hypertension <Mary Grace Silveira PA-C - Last Filed: 09/21/22 02:02> Social History Social History: Social History Smoking packs per day: 0.5 Smoking cigarettes
[2022-09-20 21:47] VITALS: BP 165/93; PULSE 64; RESP 14; O2SAT 99
[2022-09-20 22:02] VITALS: BP 154/80; PULSE 72; RESP 16; O2SAT 99
[2022-09-20] MEDS: ONDANSETRON INJ 4 MG/2 ML VIAL IV PUSH (22:09)
[2022-09-20] MEDS: KETOROLAC 30 MG/ML VIAL (*BKC) IV PUSH (22:09)
[2022-09-20] MEDS: SODIUM CHLORIDE 0.9% IV 1,000 ML 999 ML IV CONT (22:09)
[2022-09-20 22:15] VITALS: PULSE 62; RESP 14; O2SAT 100
[2022-09-20 22:16] VITALS: BP 157/82; PULSE 65; RESP 16
[2022-09-21 02:16] VITALS: BP 157/82; PULSE 80; RESP 23; O2SAT 98
== END 2022-09-21 02:16 | disposition home or self-care (01) ==
PROVIDERS: Emergency Medicine; Emergency Provider Physician Assistant; PCP Nurse Practitioner Family
DX: R10.32 Left lower quadrant pain (principal); D50.9 Iron deficiency anemia, unspecified; E53.8 Deficiency of other specified B group vitamins; E66.9 Obesity, unspecified; Z68.38 Body mass index [BMI] 38.0-38.9, adult; F41.9 Anxiety disorder, unspecified; F32.A Depression, unspecified; F17.210 Nicotine dependence, cigarettes, uncomplicated; D25.9 Leiomyoma of uterus, unspecified
CPT/HCPCS: 36415; 74177; 76856; 80053; 81001; 81025; 83690; 85025; 96361; 96374; 96375; 99284; J1885; J2405; J7030; Q9967

== ENCOUNTER 2022-11-02 00:12 | Day surgery (SDC) | payer OTHER, SELFPAY ==
--- NOTE | 2022-10-25 18:04 | PC.NURSE ---
Report to the Outpatient Waiting Room, entrance under the green pavilion located off [facility], at time 0600 on date 11/02/22. Planned Procedure Time: 0730. Time changes happen often and if your time is changed the preop area will call you the afternoon before. - You and your visitor will be asked to self-screen and do not enter if you have any COVID symptoms. - A mask is optional within the hospital at this time. Patients may have clear liquids (water, carbonated beverages, clear teas, apple juice) until 3 hours prior to surgery with a maximum of 20 ounces. 0430 - No food from midnight until time of surgery - Infants may have breast milk until 4 hours before surgery, formula 6 hours prior to surgery. - Children will be allowed to drink immediately following surgery. If applicable, please bring a bottle or sippy cup to assist with drinking. Juice, water, soda, and popsicles are readily available. For infants on formula, please bring formula the day of surgery. Pacifiers are allowed. Take the following medications with a SIP of water the morning of surgery: N/A DO NOT STOP ANY OF YOUR OTHER PRESCRIPTION MEDICATIONS PRIOR TO SURGERY ?EXCEPT THE FOLLOWING Medications to discontinue per physician N/A Date to take last dose N/A Please no make-up, nail albanian, hairspray, perfume, deodorant, or body powder the day of surgery. No jewelry (including any body piercings) or valuables the day of surgery, leave them at home. Please take a shower or bath the night before, or the morning of, surgery with an antibacterial soap. Wear comfortable, loose fitting clothing. Children are encouraged to wear pajamas. - Jewelry must be removed prior to entering the operating room. Rings and piercings that are not removed may be cut off. - The hospital will not accept responsibility for valuables. - Please leave all valuables, including medications, at home the day of surgery. If you are going home after surgery, a licensed chuck wagon driver must drive you home. - NO public transportation without another adult if you receive anesthesia. - We recommend that an adult stay with you for 24 hours following discharge. - We also recommend that you do not drive, make important decision, drink alcoholic beverages, or take any drugs that were not prescribed by your health care provider for at least 24 hours after your discharge time. For Pediatric surgeries, we recommend two adults accompany the child home. Follow any additional instructions given to you from your surgeon. If you or anyone in your household have experienced Covid symptoms in the past week, please notify your surgeon or the nurse liaison at the phone number below for possible testing. Telephone instructions given to Patient- Mila Munoz and asked if any additional questions and then verbalized understanding. Patient advised to call surgeon office or pre surgery nurse liaison [phone] if any additional questions.
[2022-10-25 18:12] VITALS: BMI 38.9
[2022-11-02 06:10] VITALS: BP 131/84; PULSE 90; RESP 20; TEMP 36.7; O2SAT 98
[2022-11-02] MEDS: ACETAMINOPHEN 500 MG TABLET 1000 MG PO (06:22)
[2022-11-02] MEDS: LACTATED RINGERS 1,000 ML 30 ML IV CONT (06:35)
--- NOTE | 2022-11-02 06:39 | WPDANESEPPF ---
Anes - Initial Pre Proc Eval Procedure: Operation Date: 11/02/22 07:30 Proposed Procedures p Hysteroscopy Dilation and Curettage - Michele Crane MD Date/Time: 11/02/22 06:39 Surgeon: Michele Crane MD Pre Op Diagnosis: cyst of uterus Patient Data Age: 42 Gender: F Height: 1.59 m Weight: 98.1 kg Allergies Allergy/AdvReac Type Severity Reaction Status Date / Time No Known Allergies Allergy Mild Verified 11/02/22 06:14 Home Medications Medication Instructions Recorded Confirmed Type No Home Medications 11/02/22 11/02/22 History Patient hx anesthesia problems: none Family hx anesthesia problems: none Results Review: All pre-operative results and documents have been reviewed as part of the pre-operative evaluation. [facility] Past Medical History Medical History Anemia Hemoglobin 13.1 with iron 36 with 10% saturation and ferritin 29 with vitamin B12 498 and folic acid 12.1 on 11/22/2021. Anxiety BMI 36.0-36.9,adult BMI 37.0-37.9, adult BMI 38.0-38.9,adult BMI 39.0-39.9,adult Constipation Depression Encounter for wellness examination in adult Encounter to establish care Folic acid deficiency Folic acid low at 4.0 with hemoglobin 13.3 and hematocrit 40.1 on 05/25/2021. Iron normal at 83 with 22% saturation with vitamin B12 485. Folic acid 12.1 with hemoglobin 13.1 on 11/22/2021. Hematuria History of colitis Iron deficiency anemia, unspecified iron 36 with 10% saturation and ferritin 29 with hemoglobin 13.1 and MCV 84 11/22/2021. LLQ abdominal pain Lump of left thigh Obesity (BMI 30-39.9) Tobacco abuse Uterine fibroid Surgical History Surgical History History of tubal ligation Family History Family History Father Hypertension Mother Hypertension Thyroid disorder Grandparent Hypertension Grandparent Hypertension Social History Social History Smoking packs per day: 0.5 Smoking cigarettes per day: 10.0 Years smoked: 18 Smoking pack-years: 9.00 Smoking status: Current every day smoker Tobacco type: cigarettes Alcohol intake: current Drinks per week: 1 Substance use: current Substance use type: marijuana Lack of Transportation: No Lack of Food: Never True Current Housing: I Have Housing Concerned About Future Housing: No Difficulty Paying Gas/Electric Bills: No Difficulty Paying for Meds: No Currently Unemployed: No Education: High School Diploma/GED Difficulty w/ Childcare or Family Care: No Living arrangements: with family Gender identity (if verbalized by the patient): Female Spiritual care concerns: No Anes - Eval Final PreProcedure Day of Procedure 11/02/22 06:39 Patient weight: obese Airway: Mallampati scale class II Last oral intake: >/= 8 hours ASA classification: III Emergent: no Anesthetic plan: proceed Anesthesia type and monitoring: general GIVS and standard monitoring Results Review: All pre-operative results and documents have been reviewed as part of the pre-operative evaluation. Informed Consent: The patient's anesthetic plan and its attendant risks and benefits were discussed with the patient/family/POA. Questions were solicited and answers provided to the satisfaction of the patient/family/POA.
--- NOTE | 2022-11-02 07:12 | WPDHPUPDATE1 ---
History and Physical Update Update Date/Time: 11/02/22 07:12 History and Physical has been reviewed, including an updated exam of the patient. There are NO changes in the patient's condition. Risks, benefits, and alternatives have been discussed and questions answered. Patient agrees to proceed with procedure.
--- NOTE | 2022-11-02 07:16 | PM.IMHP ---
H&P: HPI History of Present Illness Date/Time: 11/02/22 07:16 Chief Complaint: Endometrial lesion Narrative: 42-year-old female with endometrial lesion. We have agreed to perform hysteroscopy D&C. She understands that the procedure has risks. The procedure has been explained in detail to her. She understands that injuries may occur that result in hospitalization, more surgery, and severe illness. She understands there is risk of hemorrhage and infection. She denies any chest pain or shortness of breath. She denies any nausea, vomiting, fever, chills. Review of Systems Review of Systems: All systems reviewed & are unremarkable except as noted in HPI and below Constitutional: Constitutional: Denies chills, Denies fatigue, Denies fever(s) and Denies weakness Eyes: Eyes: Denies blurry vision, Denies change in vision, Denies loss of peripheral vision, Denies loss of vision, Denies other visual disturbances and Denies eye pain ENT: Denies vertigo, Denies dizziness, Denies hearing loss, Denies mouth pain, Denies nasal obstruction, Denies neck mass and Denies neck pain Cardiovascular: Cardiovascular: Denies chest pain, Denies diaphoresis, Denies syncope, Denies leg edema and Denies dyspnea Respiratory: Respiratory: Denies chest congestion, Denies cough, Denies hemoptysis, Denies dyspnea and Denies wheezing Gastrointestinal: Gastrointestinal: Denies abdominal pain, Denies constipation, Denies diarrhea, Denies nausea and Denies vomiting Genitourinary: Genitourinary: Denies hematuria, Denies change in libido, Denies nocturia, Denies genital lesions, Denies flank pain and Denies urinary urgency Musculoskeletal: Musculoskeletal: Denies abnormal gait, Denies back pain, Denies myalgias, Denies arthralgias, Denies joint swelling, Denies muscle weakness and Denies neck pain Integumentary/Breasts: Skin/Breast: Denies swelling, Denies breast pain, Denies breast mass, Denies dry skin, Denies nipple discharge, Denies unusual bruising and Denies jaundice Neurologic: Denies Neuro-related abnormal movements, Denies Abnormal speech present, Denies abnormal gait, Denies behavioral changes, Denies confusion, Denies vertigo, Denies dizziness, Denies syncope, Denies loss of vision, Denies memory loss, Denies convulsions and Denies weakness Psychiatric: Psychiatric: Denies abnormal sleep pattern, Denies behavioral changes, Denies change in libido, Denies confusion, Denies depression, Denies anhedonia and Denies memory loss Endocrine: Endocrine: Reports no additional endocrine complaints, Denies change in libido and Denies fatigue Hematologic/Lymphatic: Hematologic/Lymphatic: Reports no additional hematologic/lymphatic complaints Allergic/Immunologic: Allergic/Immunologic: Reports no additional allergic/immunologic complaints and Denies wheezing PMFSH Past Medical History Medical History Anemia Hemoglobin 13.1 with iron 36 with 10% saturation and ferritin 29 with vitamin B12 498 and folic acid 12.1 on 11/22/2021. Anxiety BMI 36.0-36.9,adult BMI 37.0-37.9, adult BMI 38.0-38.9,adult BMI 39.0-39.9,adult Constipation Depression Encounter for wellness examination in adult Encounter to establish care Folic acid deficiency Folic acid low at 4.0 with hemoglobin 13.3 and hematocrit 40.1 on 05/25/2021. Iron normal at 83 with 22% saturation with vitamin B12 485. Folic acid 12.1 with hemoglobin 13.1 on 11/22/2021. Hematuria History of colitis Iron deficiency anemia, unspecified iron 36 with 10% saturation and ferritin 29 with hemoglobin 13.1 and MCV 84 11/22/2021. LLQ abdominal pain Lump of left thigh Obesity (BMI 30-39.9) Tobacco abuse Uterine fibroid Surgical History Surgical History History of tubal ligation Family History Family History Father Hypertension Mother Hypertension Thyroid dis
[2022-11-02] MEDS: LIDOCAINE HCL 1% LOCAL INJ 20 ML VIAL 10 ML INFILTRATE (07:37)
[2022-11-02] MEDS: KETOROLAC 15 MG/ML VIAL (*BKC) IV PUSH (07:44)
[2022-11-02 07:56] VITALS: BP 104/60; PULSE 74; RESP 12; O2SAT 95
[2022-11-02 08:25] VITALS: BP 107/60; PULSE 64; O2SAT 96
--- NOTE | 2022-11-02 08:27 | W.PM.PROC2 ---
Procedure Note - Detailed Date of Procedure 11/02/22 Pre-op Diagnosis cyst of uterus Post-op Diagnosis Same Procedure Performed Hysteroscopy D&C Surgeon Michele Crane MD Anesthesia MAC Indications abnormal uterine bleeding Description of Procedure the patient was taken the operating room. She was prepped and draped in the dorsal lithotomy position after induction of mac anesthesia. A speculum was placed in the vagina. The cervix was grasped with a tenaculum. The cervix was dilated about 1 cm. The hysteroscope was inserted. The lower uterine segment was obliterated and it was dissected open with Metzenbaum scissors and blunt dissection with the scope. There was essentially no intrauterine cavity could be reached through the cervix. The passageway to this cystic cavitary lesion that was observed was inaccessible. Hysteroscope was withdrawn. Patient tolerated the procedure well. The speculum and tenaculum were removed. She was taken recovery room in stable condition. Sponge lap and needle counts were correct x2. Estimated Blood Loss 40 Drains No Packing No Pathology Yes Complications No immediate complications Condition Stable Disposition PACU
[2022-11-02 08:55] VITALS: BP 107/60; PULSE 64; RESP 12
== END 2022-11-02 09:25 | disposition home or self-care (01) ==
PROVIDERS: PCP Nurse Practitioner Family; Visit Provider Obstetrics & Gynecology
PROC: 0U5B8ZZ Destruction of Endometrium, Via Natural or Artificial Opening Endoscopic (ICD-10-PCS; CPT 58563; principal; 2022-11-02 07:30)
DX: N85.8 Other specified noninflammatory disorders of uterus (principal); E66.9 Obesity, unspecified; Z68.37 Body mass index [BMI] 37.0-37.9, adult; F17.210 Nicotine dependence, cigarettes, uncomplicated; F12.90 Cannabis use, unspecified, uncomplicated
CPT/HCPCS: 58558; A9270; J1100; J1885; J2250; J2405; J2704; J3010; J7120

== ENCOUNTER 2022-11-29 09:35 | Emergency (ER) | payer OTHER, SELFPAY ==
--- NOTE | ~2022-11-29 | US_ITS ---
US pelvic complete w TV DATE: 11/29/2022 12:01 INDICATION: Left adnexal pain since last night TECHNIQUE: Real-time imaging via transabdominal and transvaginal approaches COMPARISON: 09/20/2022 pelvic ultrasound examination 09/20/2022 CT abdomen pelvis FINDINGS: The uterus measures 9.5 cm vertical, 5.5 cm anteroposterior and 7.2 cm transverse dimension . There is persistent complex mixed soft tissue and cystic lesion in the region of the endometrial cavi ty of the uterus, measuring up to proxy 4.2 x 2.1 x 2.4 cm. Impressing 3.9 x 2.3 x 4 cm probable uterine fibroid. The left. There is approximately 1.5 x 3.3 x 2.3 cm and appears unremarkable. The right ovary is not detected. There is a small fluid collection in the posterior cul-de-sac. IMPRESSION: Fibroid uterus Complex mixed soft tissue and solid lesion in the region of the uterine endometrial cavity, measuring up to 4.2 x 2.1 x 2.4 cm currently, compared to 5.2 x 3.6 x 5.1 cm on 09/20/2022. Interval decreased s ize since 09/20/2022 favors benign etiology. Gynecologic correlation is recommended. Reviewed, dictated and finalized at [facility]. Reviewed, dictated and finalized at [facility]. IMPRESSION: Fibroid uterus Complex mixed soft tissue and solid lesion in the region of the uterine endomet rial cavity, measuring up to 4.2 x 2.1 x 2.4 cm currently, compared to 5.2 x 3. 6 x 5.1 cm on 09/20/2022. Interval decreased size since 09/20/2022 favors benign et iology. Gynecologic correlation is recommended.
[2022-11-29 09:43] VITALS: BP 128/97; PULSE 104; RESP 16; TEMP 36.4; O2SAT 98
[2022-11-29 10:32] LABS: Basophils Percent Auto 0.3 % (0.2-1.2); Eosinophils Absolute Auto 0.1 K/mm3 (0-0.3); Hematocrit 38.1 % (37.0-47.0); Hemoglobin 12.4 g/dL (12.0-15.0); Immature Granulocyte Absolute 0.02 K/mm3 (0.00-0.031); Immature Granulocyte Percent A 0.3 % (0-0.5); Lymphocytes Absolute Auto 2.44 K/mm3 (0.9-3.2); Lymphocytes Percent Auto 33.6 % (18.3-44.2); Mean Corpuscular HGB Conc 32.5 g/dl (32-36); Mean Corpuscular Hemoglobin 27.9 pg (26-34); Mean Corpuscular Volume 85.8 fl (80-100); Mean Platelet Volume 10.6 fl (7.4-10.4); Monocytes Absolute Auto 0.5 K/mm3 (0.1-0.6); Monocytes Percent Auto 6.2 % (2.6-8.5); Neutrophils Absolute Auto 4.3 K/mm3 (1.3-6.7); Neutrophils Percent Auto 58.6 % (45.5-73.1); Platelet Count Result 276 k/mm3 (150-375); Red Blood Count 4.44 M/mm3 (4.2-5.4); Red Cell Distribution Width 12.6 % (11.5-14.5); White Blood Count 7.3 K/mm3 (4.5-10.0)
[2022-11-29 10:33] LABS: Appearance Urine Clear (Clear); Bilirubin Urine Negative (Negative); Blood Urine Trace-lysed (Negative); Color Urine Yellow (Yellow); Glucose Urine UA Negative (Negative); Ketones Urine Negative (Negative); Leukocyte Esterase Ur Negative LEU/UL (Negative); Nitrate Urine Negative (Negative); Protein Urine Negative (Negative); Urobilinogen Urine 0.2 mg/dL (<2.0); pH Urine 6.5 (5.0-9.0)
[2022-11-29] MEDS: KETOROLAC 30 MG/ML VIAL (*BKC) IV PUSH (10:35)
[2022-11-29 10:47] LABS: Alanine Aminotransferase 19 U/L (6-35); Alkaline Phosphatase 68 U/L (38-126); Anion Gap 7 mmol/L (8-16); Aspartate Amino Transferase 23 U/L (14-36); Bilirubin,Total 0.5 mg/dL (0.2-1.3); Blood Urea Nitrogen 10 mg/dL (7-17); Carbon Dioxide 24 mmol/L (22-30); Chloride 107 mmol/L (98-107); Estimated CRCL calculation 115 ml/min; Estimated Glomerular Filt Rate > 60; Glucose 121 mg/dL (65-110); Potassium 3.5 mmol/L (3.4-5.0); Sodium 138 mmol/L (137-145)
--- NOTE | 2022-11-29 10:49 | ED.GENADULT ---
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 Ongoing since yesterday. Sudden onset and sharp. She has been taking Celebrex and Tylenol without improvement. No vaginal bleeding or discharge. Has history of uterine fibroids as well as ovarian cyst. Feels similar to previous ovarian cyst issue. No urinary frequency urgency or dysuria. Related Data Allergies Allergy/AdvReac Type Severity Reaction Status Date / Time No Known Allergies Allergy Mild Verified 11/02/22 06:14 Review of Systems Review of Systems: All systems reviewed & are unremarkable except as noted in HPI and below Constitutional: Constitutional: Denies chills, Denies fatigue and Denies fever(s) ENT: Denies nasal congestion and Denies sore throat Cardiovascular: Cardiovascular: Denies chest pain, Denies rapid heart rate and Denies radiating jaw, neck or arm pain Respiratory: Respiratory: Denies cough and Denies dyspnea Gastrointestinal: Gastrointestinal: Reports abdominal pain, Denies diarrhea, Denies nausea and Denies vomiting Genitourinary: Genitourinary: Denies abnormal vaginal bleeding, Denies nocturia, Denies dysuria, Reports pelvic pain and Denies flank pain PMFSH Past Medical History Medical History Anemia Hemoglobin 13.1 with iron 36 with 10% saturation and ferritin 29 with vitamin B12 498 and folic acid 12.1 on 11/22/2021. Anxiety BMI 36.0-36.9,adult BMI 37.0-37.9, adult BMI 38.0-38.9,adult BMI 39.0-39.9,adult Constipation Depression Encounter for wellness examination in adult Encounter to establish care Folic acid deficiency Folic acid low at 4.0 with hemoglobin 13.3 and hematocrit 40.1 on 05/25/2021. Iron normal at 83 with 22% saturation with vitamin B12 485. Folic acid 12.1 with hemoglobin 13.1 on 11/22/2021. Hematuria History of colitis Iron deficiency anemia, unspecified iron 36 with 10% saturation and ferritin 29 with hemoglobin 13.1 and MCV 84 11/22/2021. LLQ abdominal pain Lump of left thigh Obesity (BMI 30-39.9) Tobacco abuse Uterine fibroid Surgical History Surgical History History of tubal ligation Family History Family History Father Hypertension Mother Hypertension Thyroid disorder Grandparent Hypertension Grandparent Hypertension Social History Social History Smoking packs per day: 0.5 Smoking cigarettes per day: 10.0 Years smoked: 18 Smoking pack-years: 9.00 Smoking status: Current every day smoker Tobacco type: cigarettes Alcohol intake: current Drinks per week: 1 Substance use: current Substance use type: marijuana Lack of Transportation: No Lack of Food: Never True Current Housing: I Have Housing Concerned About Future Housing: No Difficulty Paying Gas/Electric Bills: No Difficulty Paying for Meds: No Currently Unemployed: No Education: High School Diploma/GED Difficulty w/ Childcare or Family Care: No Living arrangements: with family Gender identity (if verbalized by the patient): Female Spiritual care concerns: No Exam Narrative: GENERAL: Well-appearing, well-nourished, and in no acute distress. HEAD: Normocephalic, atraumatic. ENT: Mucous membranes moist. CHEST: Clear to auscultation. No respiratory distress. HEART: Tachycardic and regular. Normal peripheral pulses. ABDOMEN: Soft, mild discomfort in the left adnexal region without guarding, nondistended. EXTREMITIES: Normal range of motion. No edema. SKIN: Warm, dry, no rash. NEURO: Alert and oriented x3. PSYCH: Normal mood and affect. Course Course Emergency Course: Shilpa
[2022-11-29 11:00] LABS: Add Urine Microscopic? YES
--- NOTE | 2022-11-29 11:00 | PC.NURSE ---
PT IS IN ULTRASOUND
[2022-11-29 11:01] LABS: Squamous Epithelial Cell Urine Moderate /hpf (Few); WBC Urine 0-3 /hpf (0-3)
[2022-11-29 13:20] VITALS: BP 133/89; PULSE 70; RESP 16
== END 2022-11-29 13:20 | disposition home or self-care (01) ==
PROVIDERS: Emergency Provider Emergency Medicine; PCP Nurse Practitioner Family
DX: D25.9 Leiomyoma of uterus, unspecified (principal); E53.8 Deficiency of other specified B group vitamins; D50.9 Iron deficiency anemia, unspecified; E66.9 Obesity, unspecified; Z68.38 Body mass index [BMI] 38.0-38.9, adult; F17.210 Nicotine dependence, cigarettes, uncomplicated
CPT/HCPCS: 36415; 76830; 76856; 80053; 81001; 81025; 85025; 96374; 99284; J1885

== ENCOUNTER 2022-12-22 12:25 | Outpatient (CLI) | payer OTHER, SELFPAY | END 2022-12-22 12:26 | disposition home or self-care (01) | LOC: ANHSURGERY 12:29 | PROVIDERS: PCP Nurse Practitioner Family; Visit Provider Obstetrics & Gynecology | DX: Z01.818 Encounter for other preprocedural examination (principal); N85.8 Other specified noninflammatory disorders of uterus | CPT/HCPCS: 36415; 86850; 86900; 86901 ==

== ENCOUNTER 2023-01-04 03:36 | Day surgery (SDC) | payer OTHER, SELFPAY ==
[2022-12-22 12:13] VITALS: BMI 38.0
--- NOTE | 2022-12-22 12:17 | PC.NURSE ---
Report to the Outpatient Waiting Room, entrance under the green pavilion located off [facility], at time 8:30 on date 01/04/23. Planned Procedure Time: 10:30. Time changes happen often and if your time is changed the preop area will call you the afternoon before. - You and your visitor will be asked to self-screen and do not enter if you have any COVID symptoms. - A mask is optional within the hospital at this time. Patients may have clear liquids (water, carbonated beverages, clear teas, apple juice) until 3 hours prior to surgery (7:30) with a maximum of 20 ounces. - No food from midnight until time of surgery Take the following medications with a SIP of water the morning of surgery: TRAMADOL DO NOT STOP ANY OF YOUR OTHER PRESCRIPTION MEDICATIONS PRIOR TO SURGERY ?EXCEPT THE FOLLOWING Medications to discontinue per physician: CELEBREX Date to take last dose: ASK DR. MOREJON Please no make-up, nail japanese, hairspray, perfume, deodorant, or body powder the day of surgery. No jewelry (including any body piercings) or valuables the day of surgery, leave them at home. Please take a shower or bath the night before, or the morning of, surgery with an antibacterial soap. Wear comfortable, loose fitting clothing. - Jewelry must be removed prior to entering the operating room. Rings and piercings that are not removed may be cut off. - The hospital will not accept responsibility for valuables. - Please leave all valuables, including medications, at home the day of surgery. If you are going home after surgery, a licensed dedicated local truck driver must drive you home. - NO public transportation without another adult if you receive anesthesia. - We recommend that an adult stay with you for 24 hours following discharge. - We also recommend that you do not drive, make important decision, drink alcoholic beverages, or take any drugs that were not prescribed by your health care provider for at least 24 hours after your discharge time. Follow any additional instructions given to you from your surgeon. If you or anyone in your household have experienced Covid symptoms in the past week, please notify your surgeon or the nurse liaison at the phone number below for possible testing. Written instructions given to PT - RAHUL CASTILLO and asked if any additional questions and then verbalized understanding. Patient advised to call surgeon office or pre surgery nurse liaison [phone] if any additional questions.
[2022-12-22 12:30] VITALS: BP 132/78; PULSE 80; RESP 16; TEMP 36.6; O2SAT 99
--- NOTE | 2023-01-03 14:06 | WPDANESEPPF ---
Anes - Initial Pre Proc Eval Procedure: Operation Date: 01/04/23 10:30 Proposed Procedures p Robotic Assisted Hysterectomy with Bilateral Salpingectomy - Michele Crane MD <Bg Srivastava MD - Last Filed: 01/10/23 11:36> Date/Time: 01/03/23 14:06 <Bg Srivastava MD - Last Filed: 01/10/23 11:36> Surgeon: Michele Crane MD <Bg Srivastava MD - Last Filed: 01/10/23 11:36> Pre Op Diagnosis: mass of uterus <Bg Srivastava MD - Last Filed: 01/10/23 11:36> Patient Data Age: 42 Gender: F Height: 1.59 m Weight: 96 kg <Bg Srivastava MD - Last Filed: 01/10/23 11:36> Last Vital Signs Temp 98 F 12/22/22 12:30 Pulse 80 12/22/22 12:30 Resp 16 12/22/22 12:30 BP 132/78 12/22/22 12:30 Pulse Ox 99 12/22/22 12:30 O2 Del Method Room Air 12/22/22 12:30 <Bg Srivastava MD - Last Filed: 01/10/23 11:36> Allergies Allergy/AdvReac Type Severity Reaction Status Date / Time No Known Allergies Allergy Mild Verified 12/22/22 12:34 <Bg Srivastava MD - Last Filed: 01/10/23 11:36> Home Medications Medication Instructions Recorded Confirmed Type tramadol 50 mg tablet 50 mg PO Q6H pain #10 tabs 11/29/22 12/22/22 Rx celecoxib 200 mg capsule (Celebrex) 200 mg PO BID 12/01/22 12/22/22 History cyclobenzaprine 10 mg tablet 10 mg PO TID 12/01/22 12/22/22 History oxycodone-acetaminophen 5 mg-325 1 tablet PO Q4H PRN pain #25 tabs 01/05/23 Rx mg tablet <Bg Srivastava MD - Last Filed: 01/10/23 11:36> Patient hx anesthesia problems: none <Mac Palomino DO - Last Filed: 01/04/23 10:05> Family hx anesthesia problems: none <Mac Palomino DO - Last Filed: 01/04/23 10:05> Results Review: All pre-operative results and documents have been reviewed as part of the pre-operative evaluation. <Bg Srivastava MD - Last Filed: 01/10/23 11:36> [facility] Past Medical History Medical History: Medical History Anemia Hemoglobin 13.1 with iron 36 with 10% saturation and ferritin 29 with vitamin B12 498 and folic acid 12.1 on 11/22/2021. Anxiety BMI 36.0-36.9,adult BMI 37.0-37.9, adult BMI 38.0-38.9,adult BMI 39.0-39.9,adult Constipation Depression Encounter for wellness examination in adult Encounter to establish care Folic acid deficiency Folic acid low at 4.0 with hemoglobin 13.3 and hematocrit 40.1 on 05/25/2021. Iron normal at 83 with 22% saturation with vitamin B12 485. Folic acid 12.1 with hemoglobin 13.1 on 11/22/2021. Hematuria History of colitis Iron deficiency anemia, unspecified iron 36 with 10% saturation and ferritin 29 with hemoglobin 13.1 and MCV 84 11/22/2021. LLQ abdominal pain Lump of left thigh Obesity (BMI 30-39.9) Tobacco abuse Uterine fibroid <Bg Srivastava MD - Last Filed: 01/10/23 11:36> Surgical History Surgical History: Surgical History History of tubal ligation <Bg Srivastava MD - Last Filed: 01/10/23 11:36> Family History Family History: Family History Father Hypertension Mother Hypertension Thyroid disorder Grandparent Hypertension Grandparent Hypertension <Bg Srivastava MD - Last Filed: 01/10/23 11:36> Social History Social History: Social History (Updated 12/01/22 @ 10:30 by Jd Hernandez CMA) Smoking packs per day: 0.25 Smoking cigarettes per day: 5.0 Years smoked: 18 Smoking pack-years: 4.50 Smoking status: Current every day smoker Tobacco type: cigarettes Alcohol intake: current Drinks per week: 1 Alcohol use details: RARE Substance use: never Substance use type: does not use Lack of Transportation: No Lack of Food: Never True Current Housing: I Have Housing Concerned About Future Housing: No Difficulty Paying Gas/Electric Bills: No Difficul
[2023-01-04] VITALS (8 sets, daily range): BP systolic 112–155; BP diastolic 65–94; PULSE 68–82; RESP 12–17; TEMP 36.3–36.9; O2SAT 95–100
[2023-01-04] MEDS: ACETAMINOPHEN 500 MG TABLET 1000 MG PO (09:17)
[2023-01-04] MEDS: KETOROLAC 15 MG/ML VIAL (*BKC) IV PUSH (09:20)
[2023-01-04] MEDS: LACTATED RINGERS 1,000 ML 30 ML IV CONT ×3 (09:20→13:34)
--- NOTE | 2023-01-04 09:39 | WPDHPUPDATE1 ---
History and Physical Update Update Date/Time: 01/04/23 09:39 History and Physical has been reviewed, including an updated exam of the patient. There are NO changes in the patient's condition. Risks, benefits, and alternatives have been discussed and questions answered. Patient agrees to proceed with procedure.
[2023-01-04] MEDS: ceFAZolin 2 GM/D5W 50 ML 2 GM/50 ML BAG IVPB (10:29)
--- NOTE | 2023-01-04 12:38 | W.PM.PROC2 ---
Procedure Note - Detailed Date of Procedure 01/04/23 Pre-op Diagnosis mass of uterus Post-op Diagnosis Same Procedure Performed Robot assisted Total hysterectomy with bilateral salpingectomy and left oophorectomy. Surgeon Michele Crane MD Anesthesia General Indications heavy vaginal bleeding, pelvic pain Findings Enlarged fibroid uterus, scarred left adnexa with ovary tube and lateral uterus completely adherent. Description of Procedure This patient was taken to the operating room. She was prepped and draped in the dorsal lithotomy position after induction of general anesthesia. The uterine manipulator and Kenn cup were placed. This was done with a speculum and tenaculum. The speculum was placed. The cervix was grasped with a tenaculum. The stay sutures were placed at 3 and 9:00 a.m.. The stay sutures of 0 Vicryl were tied to the appropriately Size scope after it was slipped around the cervix.. The tip of the YANCI manipulator was placed in the intrauterine cavity. The cup was slid into place around the cervix and into the fornices. It was locked into place. The sutures were then wrapped around the handle and tied under tension. A 8 mm skin incision was made in the left upper quadrant the abdomen. a 5 mm Visiport trocar was inserted into abdominal cavity and pneumoperitoneum was achieved. A 8 mm supraumbilical incision was made and a 8 mm trocar was inserted into the intrauterine cavity under direct visualization of the scope. an 8 mm incision was made in the right upper quadrant of the abdomen and an 8 mm robotic trocar was placed the inter uterine cavity under direct visualization the scope. An 11 mm trocar was inserted in the right upper quadrant of the abdomen rectal is a cystoscope after an incision was made there as well. The robot was docked. Electronic Orientation of the robot was performed. Bilateral ureteral lysis was performed. This was done from the pelvic brim down to the uterine artery. This was done with careful dissection using sharp and blunt dissection. Left salpingo-oophorectomy was performed. The infundibulopelvic ligament was cauterized. The paraovarian tissue was cauterized and transected with vessel sealer. The mesosalpinx along the lateral aspects fallopian tube was cauterized transected with vessel sealer. The fallopian tube and suspensory the Medi over cauterized transected with vessel sealer. The tube and ovaries placed in the posterior cul-de-sac later taken out through the vagina. The right fallopian tube was removed with the vessel sealer. It was cauterized along the mesosalpinx and transected. It was amputated at the cornua and taken out through the air lock port. Then In a stepwise fashion along the lateral aspects of the uterus the round ligament and broad ligaments were cauterized transected down to the level of the uterine arteries. A bladder flap was created in the bladder was moved distally to the end of the cervix and over the Kenn cup. The bilateral uterine arteries were cauterized and transected. Colpotomy was then performed. In a circumferential fashion the vagina was transected using unipolar cautery. The incision was made down on the Kenn cup. The uterus and cervix were taken out through the vagina. A pneumo occluder was placed in the vagina. The vaginal cuff was closed with a 0 V lock suture in a running fashion. The pelvis was irrigated with copious amounts antibiotic irrigation. The ureters were again examined and found to be intact and flowing freely under the uterine arteries into the bladder. The bladder was intact. It was examined directly. The vagina was irrigated with Betadine solution after removal of the Pneumo occluder. the trocars were removed after the robot was undocked. The skin was closed with subacute or Dermabond. The patient was taken to recovery room. She was stable condition. Sponge lap and needle counts were correct x2. Estimated Blood Loss 125 Urine Output
[2023-01-04] MEDS: fentaNYL CITRATE INJ (*CRX) 100 MCG/2 ML VIAL 25 MCG IV PUSH ×6 (13:09→13:43)
--- NOTE | 2023-01-04 13:23 | SUR.PHASEI ---
1323: Simple mask removed.
[2023-01-04] MEDS: DEXTROSE 5%/0.45% SOD CHL 1,000 ML 125 ML IV CONT ×2 (14:40→22:26)
[2023-01-04] MEDS: KETOROLAC 30 MG/ML VIAL (*BKC) IV PUSH (14:40)
[2023-01-04] MEDS: HYDROcodone/acetaminophen (*CRX) 5-325 MG TABLET 1 TAB PO ×2 (17:43→20:23)
[2023-01-04] MEDS: SIMETHICONE 80 MG TAB.CHEW PO (17:45)
--- NOTE | 2023-01-04 18:22 | PC.NURSE ---
Cifuentes catheter removed 01/04/23@1700.
[2023-01-05 04:15] VITALS: BP 126/77; PULSE 67; RESP 16; O2SAT 100
[2023-01-05 09:00] VITALS: BP 138/73; PULSE 74; RESP 16; TEMP 36.4; O2SAT 99
[2023-01-05] MEDS: IBUPROFEN 600 MG TABLET PO (09:07)
[2023-01-05] MEDS: HYDROcodone/acetaminophen (*CRX) 5-325 MG TABLET 1 TAB PO (09:08)
--- NOTE | 2023-01-05 10:07 | WPDANESPN ---
Anes - Prog Note Post-Op Date/Time: 01/05/23 10:07 Cardiovascular status: normal Respiratory status: normal Airway patency: baseline Mental status: baseline Post-Op hydration status: normal Vital Signs: Last Vital Signs Temp 36.4 C 01/05/23 09:00 Pulse 74 01/05/23 09:00 Resp 16 01/05/23 09:00 BP 138/73 01/05/23 09:00 Pulse Ox 99 01/05/23 09:00 O2 Del Method Nasal Cannula 01/04/23 13:50 O2 Flow Rate 2 01/04/23 13:50 Pain Score (VAS): 10 I/O: Intake & Output 01/04/23 01/05/23 01/05/23 23:59 07:59 15:59 Intake Total 1000 Balance 1000 Post-procedural complaints: none Patient Feedback: Patient satisfied with anesthetic care.
--- NOTE | 2023-01-05 10:25 | PM.GYNPNOP ---
MANAGER PERIOPERATIVE - A/P Postoperative Procedures: Procedures Operation Date: 01/04/23 10:30 Actual Procedure Side Surgeon p Robotic Assisted Hysterectomy with Bilateral Salpingectomy, Left Oophorectomy Bilateral Michele Crane MD Postoperative day: 1 Postoperative status: doing well Postoperative plan: see orders Time Spent With Patient Time: Total time spent is greater than 50% in coordination of care (as documented) at patient's floor/unit and/or counseling patient: Time with patient: less than 15 minutes MANAGER PERIOPERATIVE- PN:Subj Post-Op Subjective Date/time seen: 01/05/23 10:25 Subjective: patient reports feeling better, patient has no complaints and pain is well controlled Exam Const: General: healthy appearing, comfortable and no acute distress Resp: Auscultation: clear to auscultation bilaterally, no rales, no rhonchi and no wheezes Cardio: Rate: regular rate Heart sounds: no click, no murmurs and no rubs GI: Inspection: non-distended Auscultation: normal bowel sounds Extrem: General: normal to inspection, no pedal edema and no calf tenderness MANAGER PERIOPERATIVE - PN: Obj Data Vital Signs Vital Signs: Vital Signs - 24 hr 01/04/23 12:50 01/04/23 13:05 01/04/23 13:20 Temperature 97.3 F L Pulse Rate 69 75 68 Respiratory Rate 12 13 17 Blood Pressure 128/86 148/88 H 152/92 H Pulse Oximetry 95 100 99 Oxygen Delivery Simple Face Mask Simple Face Mask Simple Face Mask Oxygen Flow Rate 10 10 10 01/04/23 13:35 01/04/23 13:50 01/04/23 14:10 Temperature 98.4 F Pulse Rate 82 75 73 Respiratory Rate 12 13 16 Blood Pressure 154/94 H 155/83 H 140/87 Pulse Oximetry 97 100 100 Oxygen Delivery Nasal Cannula Nasal Cannula Oxygen Flow Rate 2 2 01/04/23 19:00 01/05/23 04:15 01/05/23 04:15 Temperature 98.4 F Pulse Rate 74 67 67 Respiratory Rate 16 16 16 Blood Pressure 112/65 126/77 Pulse Oximetry 95 100 100 Oxygen Delivery Oxygen Flow Rate 01/05/23 09:00 01/05/23 09:00 Temperature 97.6 F Pulse Rate 74 74 Respiratory Rate 16 16 Blood Pressure 138/73 Pulse Oximetry 99 99 Oxygen Delivery Room Air Oxygen Flow Rate Intake/Output Intake/Output: Intake & Output 01/02/23 01/03/23 01/04/23 01/05/23 23:59 23:59 23:59 23:59 Intake Total 1750 240 Output Total 840 Balance 910 240 Meds/Results Medications: Active Medications Generic Name Dose Route Start Last Admin Trade Name Freq PRN Reason Stop Dose Admin Hydrocodone Bitart/Acetaminophen 1 tab 01/04/23 13:52 01/05/23 09:08 Hydrocodone/Acetaminophen (*Crx) 5-325 Mg Tablet PO 1 tab Q3H PRN Administration Pain Rated 5 or Less Hydrocodone Bitart/Acetaminophen 1 tab 01/04/23 13:52 Hydrocodone/Acetaminophen (*Crx) 10-325 Mg Tablet PO Q3H PRN Pain Rated 6 or Greater Ibuprofen 600 mg 01/04/23 13:52 01/05/23 09:07 Ibuprofen 600 Mg Tablet PO 600 mg Q6H PRN Administration Cramping Naloxone HCl 0.1 mg 01/04/23 13:52 Naloxone Hcl 0.4 Mg/Ml Vial IV PUSH Q2M PRN Respiratory rate less than 10 Ondansetron HCl 4 mg 01/04/23 13:52 Ondansetron Inj 4 Mg/2 Ml Vial IV PUSH Q6H PRN Nausea And Vomiting Simethicone 80 mg 01/04/23 17:39 01/04/23 17:45 Simethicone 80 Mg Tab.Chew PO 80 mg Q2H PRN Administration Gas Discomfort
== END 2023-01-05 11:00 | disposition home or self-care (01) ==
LOC: ANHSURGERY 08:28 → ANHOB2 13:55
PROVIDERS: PCP Nurse Practitioner Family; Visit Provider Obstetrics & Gynecology
PROC: (CPT 58571; principal; 2023-01-04 10:30)
DX: R10.2 Pelvic and perineal pain (principal); N72 Inflammatory disease of cervix uteri; N88.8 Other specified noninflammatory disorders of cervix uteri; N80.01 Superficial endometriosis of the uterus; N80.202 Endometriosis of left fallopian tube, unspecified depth; D25.9 Leiomyoma of uterus, unspecified
CPT/HCPCS: 58571; S2900; 88307; 99199; A9270; J0690; J1100; J1170; J1885; J2250; J2405; J2704; J3010; J7030; J7120

== ENCOUNTER 2024-12-10 09:55 | Outpatient (CLI) | payer BC, SELFPAY ==
[2024-12-10 10:22] LABS: Hematocrit 41.6 % (37.0-47.0); Hemoglobin 13.4 g/dL (12.0-15.0); Immature Granulocyte Percent A 0.2 % (0-0.5); Lymphocytes Absolute Auto 3.27 K/mm3 (0.9-3.2); Mean Corpuscular HGB Conc 32.2 g/dl (32-36); Mean Corpuscular Hemoglobin 27.5 pg (26-34); Mean Corpuscular Volume 85.2 fl (80-100); Nucleated Red Blood Cells Absolute Auto 0.000 K/mm3 (0.0-0.012); Nucleated Red Blood Cells Perc 0.0 % (0.0-0.2); Platelet Count Result 287 k/mm3 (150-375); Red Blood Count 4.88 M/mm3 (4.2-5.4); White Blood Count 12.5 K/mm3 (4.5-10.0)
[2024-12-10 10:25] LABS: Add Urine Microscopic? YES; Appearance Urine Clear (Clear); Glucose Urine UA Negative (Negative); Leukocyte Esterase Ur Negative LEU/UL (Negative); Nitrate Urine Negative (Negative); Non Pathogenic Casts 0-2; Specific Grav Ur 1.009 (1.001-1.035)
[2024-12-10 10:35] LABS: Hemoglobin A1C 5.2 % (<5.7)
[2024-12-10 10:52] LABS: Alanine Aminotransferase 17 U/L (6-35); Albumin Level 4.2 g/dL (3.5-5.1); Alkaline Phosphatase 102 U/L (38-126); Anion Gap 6 mmol/L (4-12); Aspartate Amino Transferase 29 U/L (14-36); Bilirubin,Total 1.0 mg/dL (0.2-1.3); Blood Urea Nitrogen 13 mg/dL (7-17); Calcium 10.0 mg/dL (8.4-10.2); Carbon Dioxide 27 mmol/L (22-30); Chloride 105 mmol/L (98-107); Cholesterol 160 mg/dL (0-200); Estimated Glomerular Filt Rate > 60; Glucose 97 mg/dL (65-110); HDL Direct 50 mg/dL; Potassium 3.7 mmol/L (3.4-5.0); Sodium 138 mmol/L (137-145); Total Protein 7.4 g/dL (6.3-8.2); Triglycerides 74 mg/dL (<150)
[2024-12-10 11:01] LABS: Influenza A QL RT-PCR Negative (Negative); Influenza B QL RT-PCR Negative (Negative); RSV RNA, RT-PCR Negative (Negative); SARS-CoV-2 RNA PCR Negative (Negative)
--- OUTSIDE RECORDS SUMMARY | 2024-12-10 11:07 | XMS_ITS | Data Portability ---
Author Organization [facility] [place] Address [address] [place] [address] Care Team Providers Care Pari Mutuel Clerk Name Role Phone TAWANDAANIKAAGNIESZKA Primary Care Provider Assessment No assessment recorded. Plan of Treatment Reminders Order Date Submit Date Provider Last Modified By Organization Details Last Modified Time Details Appointments None recorded. Lab None recorded. Referral None recorded. Procedures None recorded. Surgeries robotic assisted hysterectom y with salpingecto my (SURG) [address] [facility], [facility] [address], [place], [address], 3 14:45:01 Imaging None recorded. Medication Orders None recorded. Patient TargetsNo targets recorded. Patient InstructionsNo instructions recorded. Reason for Referral None Reported. Results Created Date Observation Date Name Description Value Unit Range Abnormal Flag Note LastModifiedBy Organization Detail LastModifiedTime Result Notes None recorded. Problems Name Problem SNOMED Code Status Onset Date Resolution Date Notes Provider Name and Address Organization Details Recorded Time Menstrua tion finding Completed 201107/27/2020 Excessiv e or frequent menstrua tion;Rec orded Elsewher e: No Locat ion: Brandon badillo [facility] S ource: E[employer] Helper josé miguel: N Practi ce ID: 0001 Mike lable Time: 03:45:00 PM Garima leslie [facility] 1 12:10:57 Uses oral contrace ption [id number] Completed 201207/27/2020 Surveill ance of contrace ptive pill;Rec orded Elsewher e: No Locat ion: [facility] S ource: EHR [employer] Helper josé miguel: N Columbati ce ID: 0001 Mike lable Time: 02:15:00 PM Garima Bk leslie, [facility] 12:11:00 Dysfunct ional uterine bleeding Completed 201207/27/2020 DUB;Prac rahul ID: 0001 Garima Bourgeois [facility], [facility] 12:10:46 Speciali zed medical examinat ion Completed 201207/27/2020 Gynecolo gical Examinat ion;Sarkis rded Elsewher e: No Locat ion: [facility] S ource: EHR [employer] Helper josé miguel: N Columbati ce ID: 0001 Mike lable Time: 01:30:00 PM Garima leslie, [facility] 12:11:12 Family planning surveill ance Completed 201207/27/2020 Contrace ptive surveill ance, unspecif ied;Prac rahul ID: 0001 Garima Bourgeois [facility], [facility] 12:10:48 Subcutan eous contrace ptive implant present [id number] Completed 201207/27/2020 Removal Or Check Nexplano n;Practi ce ID: 0001 Garima Bourgeois [facility], [facility] 12:11:16 Screenin g for malignan t neoplasm of cervix Completed 201607/27/2020 Screenin g for malignan t neoplasm s of the cervix;R ecorded Elsewher e: No Locat ion: [facility] S ource: EHR [employer] Helper josé miguel: N Columbati ce ID: 0001 Mike lable Time: 09:45:00 AM Garima Bourgeois [facility], [facility] 12:11:05 Body mass index 30+ - obesity [id number] Completed 201607/27/2020 Body mass index (BMI) 32.0-32. 9, adult;Re corded Elsewher e: No [facility] E[facility] [employer] Helper josé miguel: N Practi ce ID: 0001 Mike lable Time: 09:45:00 AM Garima leslie, [facility] 12:10:42 Syphilis test finding [id number] Completed 201607/27/2020 Encntr screen for infectio ns w sexl mode of transmis s;Record ed Elsewher e: No Locat ion: [facility] S ource: EHR [employer] Helper josé miguel: N Columbati ce ID: 0001 Mike lable Time: 09:45:00 AM Garima leslie, [facility] 12:11:19 Infectio n screenin g Completed 201607/27/2020 Encounte r for screenin g for oth infec/pa rastc diseases ;Recorde d Elsewher e: No Locat ion: [facility] S ource: EHR [employer] Helper josé miguel: N Columbati ce ID: 0001 Mike lable Time: 09:45:00 AM Garima leslie, [facility] 12:10:53 Finding of menstrua l bleeding Completed 201707/27/2020 Excessiv e and frequent menstrua tion with regular cycle;Pr actice ID: 0001 Garima leslie, [facility] 12:10:51 Pregnanc y test negative [id number] Completed 201707/27/2020 Encounte r for pregnanc y test, result negative ;Recorde d Elsewher e: No [facility]: E[employer] Helper josé miguel: N Practi ce ID: 0001 Mike lable Time: 09:30:00 AM [facility] 12:11:03 Abnormal uterine bleeding [id number] 100 Completed 201707/27/2020 Other specifie d abnormal uterine and vaginal bleeding ;Practic e ID: 0001 Garima Bourgeois [facility] 12:10:[address] Concept Completed 201807/27/2020 Encntr for general adult medical exam w/o abnormal findings ;Recorde d Elsewher e: No Locat ion: [facility] S ource: EHR [employer] Helper josé miguel: N Practi ce ID: 0001 Mike lable Time: 02:30:00 PM Garima Bourgeois [facility] 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 12:11:10 Insertio n of intraute rine contrace ptive device Completed 201807/27/2020 Encounte r for insertio n of intraute rine contrace ptive device;P ractice ID: 0001 Garima Bourgeois [facility] 12:10:55 Contrace ptive sheath status [id number] Completed 201807/27/2020 Encounte r for routine checking of intraute rine contrace p dev;Prac rahul ID: 0001 Garima Bourgeois [facility] 12:10:44 Problem Notes None recorded. Procedures Surgical History Date Name Laterality Status Provider Name and Address Organization Details Recorded Time 11/03/19 23 DILATION AND CURETTAGE WITH HYSTEROSCOPY (SURG) completed Bindu Mata [facility] 11/03/2022 10:04:50 09/04/19 21 Date of Last Pap Smear completed Marlena Dickey [facility] 11/19/2020 09:54:23 09/10/19 20 ligation of bilateral fallopian tubes completed Garima Bourgeois [facility] 07/28/2020 10:01:25 09/10/19 20 Endometrial Ablation completed April Guzman, [facility]- [address], [place], [address], [facility] 11/19/2020 10:26:19 09/01/19 18 endometrial biopsy completed Garimagauri Bourgeois [facility] 07/27/2020 12:31:36 05/15/19 06 section completed Garimagauri Bourgeois [facility] 07/27/2020 12:31:11 Imaging Results None recorded. Procedure Notes None recorded. Medical Equipment None Reported. Allergies No known drug allergies Medications Name Sig Start Date Stop Date Status Note LastModified by Organization Details LastModified Time celecoxib 200 mg capsule TAKE 2 CAPSULES BY MOUTH INITIAL LOADING DOSE, THE TAKE 1 CAPSULE EVERY 12 HOURS NEEDED FOR PAIN MAXIMUM OF 7 DAYS active Not Available Not Available No t Available cyclobenz aprine 10 mg tablet TAKE 1 TABLET BY MOUTH TWICE DAILY FOR 15 DAYS NEEDED active Not Available Not Available No t Available Mirena 21 mcg/24 hr (up to 8 years) 52 mg intrauter ine device 07/28 completed mirena IUD inserted 9 and will 5 Not Available Not Available Not Available paroxetin e 10 mg tablet TAKE 1 TABLET BY MOUTH DAILY active Not Available Not Available No t Available hydrocodo ne 5 mg-acetam inophen 325 mg tablet 07/27 completed Not Available Not Available Not Available ondansetr on HCl 4 mg tablet TAKE 1 TABLET BY MOUTH EVERY 8 HOURS 09/21 completed Not Available Not Available Not Available metronida zole 500 mg tablet TAKE 1 TABLET BY MOUTH EVERY 12 HOURS FOR 7 DAYS 09/06 completed Not Available Not Available Not Available sulfameth oxazole 800 mg-trimet hoprim 160 mg tablet TAKE 1 TABLET BY MOUTH EVERY 12 HOURS 09/06 completed Not Available Not Available Not Available tramadol 50 mg tablet TAKE 1 TABLET BY MOUTH EVERY 6 HOURS NEEDED FOR PAIN active Not Available Not Available No t Available oxycodone -acetamin ophen 5 mg-325 mg tablet active Not Available Not Available Not Available famotidin e 20 mg tablet TAKE 1 TABLET BY MOUTH EVERY 12 HOURS FOR 5 DAYS 09/06 completed Not Available Not Available Not Available Depo-Prov era 150 mg/mL intramusc ular suspensio n inject 1 millilit er by intramus cular route every 3 months 08/22 completed Prescrib ed Elsewher e: No Locat ion: [facility] odify By: lynne champion DateTime : 09/01/19 18 09:30:00 AM Not Available Not Available Not Available dicyclomi ne 20 mg tablet TAKE 1 TABLET BY MOUTH THREE TIMES A DAY 09/06 completed Not Available Not Available Not Available folic acid 1 mg tablet TAKE 1 TABLET BY MOUTH EVERY DAY 09/21 completed Not Available Not Available Not Available medroxypr ogesteron e 150 mg/mL intramusc ular syringe ADMINIST ER 1 ML IN THE MUSCLE EVERY 3 MONTHS 09/06 completed Not Available Not Available Not Available bupropion HCl XL 150 mg 24 hr tablet, extended release TAKE 1 TABLET BY MOUTH EVERY MORNING 09/06 completed Not Available Not Available Not Available Ortho-Cyc thor (28) 0.25 mg-35 mcg tablet take 1 tablet by oral route every day 08/19 completed Prescrib ed Elsewher e: No Locat ion: [facility] odify By: carissa jaimes DateTime : 08/14/19 13 08:44:04 AM Not Available Not Available Not Available nitrofura ntoin monohydra te/macroc rystals 100 mg capsule TAKE 1 CAPSULE BY MOUTH EVERY 12 HOURS FOR 5 DAYS 07/28 completed Not Available Not Available Not Available Implanon 68 mg subdermal implant 08/19 completed Prescrib ed Elsewher e: No Locat ion: [facility] odify By: [email or web address] Encounte r DateTime : 08/31/19 03:45:00 PM Not Available Not Available Not Available 1 mg-20 mcg (24)/75 mg (4) tablet Take one tablet daily skipping placebo week for continuo us cycling. 09/06 completed Not Available Not Available Not Available Aurovela Fe 1-20 (28) 1 mg-20 mcg (21)/75 mg (7) tablet 09/06 completed Not Available Not Available Not Available Vitals Date Recorded Body height Body mass index (BMI) Body weight Systolic And Diastolic Provider Name and Address Organization Details Last Updated DateTime 11/10/2022 160.66 cm 36.9 kg/m2 61261.4 g 147/90 mm[Hg] [facility] 11/10/2022 11:54:14 Date Recorded Body height Body mass index (BMI) Body weight Systolic And Diastolic Provider Name and Address Organization Details Last Updated DateTime 12/28/2022 160.66 cm 37.1 kg/m2 11023.99 g 161/90 mm[Hg] [facility] 12/28/2022 16:36:42 Date Recorded Body height Body mass index (BMI) Body weight Systolic And Diastolic Provider Name and Address Organization Details Last Updated DateTime 01/11/2023 160.66 cm 36.9 kg/m2 00625.4 g 125/83 mm[Hg] [facility] 01/11/2023 14:26:20 Social History Question Answer Notes LastModified by Organizat ion Details LastModified Time Tobacco Smoking Status Current Every Day Smoker [facility] 12/28/2022 16:36:56 If You Are , What Was Your Level Of Alcohol Consumption Prior To ? None Information not available 12/28/2022 How Many Years Have You Consumed Alcohol? 20 Information not available 12/28/2022 Are You Blind Or Do You Have Difficulty Seeing? No [email or web address] Information n ot available 07/27/2020 What Is Your Level Of Caffeine Consumption? Moderate [email or web address] Information not available 07/27/2020 How Much Tobacco Do You Chew? None Information not available 12/28/2022 In The 14 Days Before Symptom Onset, Have You Had Close Contact With A Laboratory-confirm ed COVID-19 While That Case Was Ill? No [email or web address] Information n ot available 07/27/2020 In The 14 Days Before Symptom Onset, Have You Had Close Contact With A Person Who Is Under Investigation For COVID-19 While That Person Was Ill? No Information not available 07/27/2020 Have You Been To An Area Known To Be High Risk For COVID-19? No [email or web address] Information not available 07/27/2020 Are You Deaf Or Do You Have Serious Difficulty Hearing? No [email or web address] Information not available 07/27/2020 What Type Of Diet Are You Following? REGULAR [email or web address] Information n ot available 07/27/2020 What Is The Highest Grade Or Level Of School You Have Completed Or The Highest Degree You Have Received? [id number] Information not available 12/28/2022 Are There Any Guns Present In Your Home? No Information not available 12/28/2022 Have You Ever Been Counseled For Unhealthy Alcohol Use? No Information not available 12/28/2022 Do You Use Protection During Sex? No Information not available 12/28/2022 Do You Use Your Seat Belt Or Car Seat Routinely? Yes [email or web address] Information not available 07/27/2020 Do You Have Smoke And Carbon Monoxide Detectors In Your Home? Yes [email or web address] Information not available 07/27/2020 At What Age Did You Start Smoking Tobacco? 17 Information not available 12/28/2022 How Much Tobacco Do You Smoke? 2 PPW Information not available 12/28/2022 Do You Use Sunscreen Routinely? Yes [email or web address] Information not available 07/27/2020 Has Tobacco Cessation Counseling Been Provided? No Information not available 12/28/2022 How Many Years Have You Smoked Tobacco? 17 Information not available 12/28/2022 Have You Used IV Drugs? No Information not available 12/28/2022 Do You Have Difficulty Walking Or Climbing Stairs? No Information not available 12/28/2022 Sex: Female Functional Status Question Answer Note LastModified by Organizat ion Details LastModified Time Do you use any illicit or recreational drugs? No [email or web address] Information not available 07/27/2020 Do you or have you ever used any other forms of tobacco or nicotine? Yes Information not available 12/28/2022 What is your level of alcohol consumption? Occasional [email or web address] Information not available 07/27/2020 Do you or have you ever used smokeless tobacco? Never used smokeless tobacco Information not available 12/28/2022 Are you able to walk independently without assistance or assistive devices? YESWOREST [email or web address] Information not available 07/27/2020 Are you able to care for yourself independently? Yes Information not available 12/28/2022 What is your occupation? [employer] Information not available 12/28/2022 Do you have difficulty dressing, bathing, grooming, or toileting? No Information not available 12/28/2022 Do you or have you ever used e-cigarettes or vape? Current user of electronic cigarettes Information not available 12/28/2022 What is your exercise level? Moderate [email or web address] Information not available 07/27/2020 Mental Status Question Answer Note LastModified by Organization D etails LastModified Time Do you feel stressed (tense, restless, nervous, or anxious, or unable to sleep at night)? [id number] [email or web address] Information not available 07/27/2020 Family History Relationship Description Onset Age of this Age Resolved Age Notes LastModified by Organization Details LastModified Time Brother Asthma [email or web address] Not availabl e 07/27/2020 12:29:08 Maternal Grandmother Malignant neoplasm of breast [email or web address] Not available 07/27 12:29:26 Mother Hypertensive disorder [email or web address] Not available 07/27 12:29:48 Mother Hypercholest erolemia [email or web address] Not available 07/27 12:30:01 Father Hypertensive disorder [email or web address] Not available 07/27 12:29:48 Father Hypercholest erolemia [email or web address] Not available 07/27 12:30:01 Maternal Aunt Diabetes mellitus [email or web address] Not available 07/27 12:30:12 Maternal Aunt Malignant neoplasm of colon [email or web address] Not available 07/27 12:30:24 Maternal Aunt Malignant neoplasm of brain Not available 2022 14:03:20 Medical History Condition Response Allergies (Food, seasonal, environmental ) N Other N Breast Cancer N Drug/Latex Allergies/Reactions N Blood Transfusion N Dermatologic Disorders N Lung Disease N Defects or Inherited Disease N Breast Problem N Gestational Diabetes N Hematologic disorders N Anesthesia Complications N History of STI N Deep Vein Thrombosis N Polycystic ovary syndrome N Anxiety Disorder N Autoimmune disease N Arthritis N Infertility N Polyps N Acid Reflux (GERD) N History of abnormal pap N Cancer N Stroke N Varicosities N Neurologic/Epilepsy N Endometriosis N High Cholesterol N Headaches N Fibromyalgia N Kidney Disease N Heart Problems N Kidney or Bladder Problems N Thyroid Problems N GI Problems N Eating Disorder N Anemia N Art (IVF or FET) N Psychiatric Illness N Ovarian Cancer N Diabetes N Pulmonary (TB, Asthma) N Hepatitis/Liver Disease N No Past Medical History N Eczema N Urinary Tract Infection N Abuse/Domestic Violence N Asthma N Trauma/Violence N Depression/ depression N Heart Disease N Pre-Eclampsia N Hypertension N Osteoporosis N Thrombophilias N Gynecological History Statement/Question Response Abnormal Pap N Date of Last Mammogram On BCP's at Conception? N N STIs/STDs N HPV Vaccine N Colposcopy Current Control Method Hysterectom y Age at First Child 24 Sexually Active? Y Menses Monthly N Date of Last Pap Smear 09/03/2020 Sexual Problems? N Desired Control Method Ablation LMP Unknown N Obstetrics History GPAL:G 4 P 2 0 2 2 Type Value Full Term 2 Induced 2 Living 2 Total 4 Past Encounters Encounter ID Performer Location Encounter Start Date Encounter Closed Date Diagnosis/Indication Diagnosis SNOMED-CT Code Diagnosis ICD10 Code Diagnosis IMO Codes Diagnosis Note [id number] Zelalem Crane MD [place] [address] [address] 08/08/2019 15:47:22 08/12/2019 15:58:15 Menorrhagia 505805067 N92.0 This patient is a 38-year-ol d female with severe menorrhagi a and unwanted fertility. We have agreed to perform laparoscop ic bilateral ligation and endometria l ablation with Nadia. She understand s the risk, benefits, and alternativ es. She has completed informed consent process and is ready to proceed. [id number] Zelalem Crane MD [place] [address] [address] 2019 13:55:38 2019 14:59:32 Menorrhagia 149585547 N92.0 This patient is a 38-year-ol d female with severe menorrhagi a and unwanted fertility. We have agreed to perform laparoscop ic bilateral ligation and endometria l ablation with Nadia. She understand s the risk, benefits, and alternativ es. She has completed informed consent process and is ready to proceed. [id number] Zelalem Crane MD [place] [address] [address] 09/17/2019 09:34:15 09/17/2019 10:03:14 Postoperative care [id number] Z48.89 This patient is a 39-year-ol d female who presents forpostopf ollow-up. She is 1 weekpostop from a endometria l ablation and laparoscop ic bilateral tubal ligation. She has no complaints other than watery vaginal discharge. She was given reassuranc e that this is normal. She states that the watery vaginal discharge is clear, non opaque, and does not have foul. Her incisions are clean dry and intact. She will follow up as needed. [id number] Sameera Mccormick CNM [place] [address],[facility] [place] [address] 07/28/2020 09:35:14 07/28/2020 10:24:59 Left sided abdominal pain [id number] R10.9 [id number] Zelalem Crane MD [place] [address] [address] 08/03/2020 09:27:56 08/03/2020 10:18:11 Pain in pelvis 99541723 R10.2 [id number] April Guzman [facility] [address] [address] 08/22/2020 12:43:58 08/24/2020 10:16:51 Pain in pelvis 74743435 R10.2 Today, we agreed to monitor her status.She has an appt with general PCP this coming week on monday. She has well woman exam in 2wks.We agreed to f/u at [facility] but sooner if she needs it. Consider trial of SLYND or low dose OCP if appropriat e if we feel this is related more to pelvic pain.I have recommende d Miralax (60-100gms ) mixed with gatorade to help produce bowel movements as it has been almost 4-5 days since her last BM. She will give us update with plan of care from PCP. Patient is to contact office or go to nearest ED/Urgent care if fever >/= 100.1, pain, excessive bleeding, unusual drainage or swelling in area of concern; or experienci ng worsening sx's or new onset of concerning sx's. Understand ing verbalized . All questions answered to patient satisfacti on. Time spent in visit is a total of 15 mins with at least 50% of visit consisting of counseling and review of plan of care.Addit ional precaution rigo measures were taken to minimize potential exposure to the Covid-19 virus during this patient s visit, including available hand early childhood associate upon arrive, temperatur e check and being asked a series of screening questions. All staff wore face coverings during this encounter, as well as provided additional cleaning and sanitizing of all surfaces, including countertop s, pens, chairs, door handles, light switches, etc, prior to and following the patient s visit. [id number] April Guzman [facility] [address] [address] 09/03/2020 13:34:34 09/03/2020 15:04:36 Gynecologic examination 24490740 Z01.419 Take Calcium with Vitamin D 1200mg daily if not receiving in daily diet. It is strongly advised to have an annual flu shot and up can obtain at most pharmacies . If you have not had a TDap shot in the last 10 years you should obtain one as well. Discussed with patient & provided with informatio n regarding Gardisil vaccine to prevent the 4 strains for HPV that cause cervical cancer if under age 26. Encourage safe sexual practices, to use condoms and limit partners if not already in a monogamous relationsh ip. Do monthly self breast exams. Have mammogram yearly or every other year depending on family history. BRCA testing is now available for patients with strong genetic history of female cancer. If interested contact the office. Engage in daily exercise of low impact aerobic exercise 45-60 minutes 4-5 times weekly. Avoid tobacco and illicit drugs as well as using moderation with alcohol intake less than 1-2 8 oz beverages daily. This lifestyle behavior pattern will lead to less health conditions and longer life span. If BMI greater than 25 weight watchers or dietary consult advised. Patient received above instructio ns, and questions have been answered. If you have any questions please call or respond to this email. Patient was made aware of the patient portal and may obtain a paper copy of today's plan if desired. Pap/HPV updatedNor mal pap/hpv hxSTD declinedNo issues or concernsMa mmo screening next yearBC: tubal [id number] Zelalem Crane MD [place] [address],[facility] [place] [address] 11/16/2020 11:56:22 11/16/2020 13:52:49 Pain in pelvis 40167628 R10.2 [id number] ASHLEY [facility] [address],[facility] [place] [address] 11/19/2020 10:01:56 11/19/2020 10:32:27 Pain in pelvis 05714968 R10.2 REview of TVUS todayMD consult to be scheduled Discussed continous cycling of BCP until MD consult & plan of care determined hopefully this will help deter pain she has from dysmenorrh ea monthly despite not having visible bleeding during cycle. Time spent in visit is a total of 15 mins with at least 50% of visit consisting of counseling and review of plan of care. Additional precaution rigo measures were taken to minimize potential exposure to the Covid-19 virus during this patient s visit, including available hand early childhood associate upon arrive, temperatur e check and being asked a series of screening questions. All staff wore face coverings during this encounter, as well as provided additional cleaning and sanitizing of all surfaces, including countertop s, pens, chairs, door handles, light switches, etc, prior to and following the patient s visit. [id number] Zelalem Crane MD [place] [address] [place] [place] [address] 12/03/2020 12:35:02 12/04/2020 10:00:28 Pain in pelvis [id number] R10.2 this patient is a 40-year-ol d female with severe pelvic pain. She has longstandi ng pelvic pain. Patient has used hormonal contracept ion in the past. She had a Nexplanon implant but continued to bleed with Nexplanon implant. patient wants to consider or proceed with hysterecto my. We talked about other treatment options. We agreed to try Depo-Prove ra 1st. She will start Depo-Prove ra. We spent more than 25 minutes face-to-fa ce. Her care required more than 45 minutes total. It required reviewing her ultrasound , her past medical history. Her past medical records. We agreed not to proceed with surgery and to start a alternativ e medical treatment. She will follow-up in 3 months. Screening procedure 2012 5006 Z13.9 [id number] [facility] [address] [address] 09/06/2021 10:57:27 09/06/2021 11:22:23 Gynecologic examination [id number] Z01.419 Z11.51 Take Calcium with Vitamin D 1200mg daily if not receiving in daily diet. It is strongly advised to have an annual flu shot and up can obtain at most pharmacies . If you have not had a TDap shot in the last 10 years you should obtain one as well. Discussed with patient & provided with informatio n regarding Gardisil vaccine to prevent the 4 strains for HPV that cause cervical cancer if under age 26. Encourage safe sexual practices, to use condoms and limit partners if not already in a monogamous relationsh ip. Do monthly self breast exams. Have mammogram yearly or every other year depending on family history. BRCA testing is now available for patients with strong genetic history of female cancer. If interested contact the office. Engage in daily exercise of low impact aerobic exercise 45-60 minutes 4-5 times weekly. Avoid tobacco and illicit drugs as well as using moderation with alcohol intake less than 1-2 8 oz beverages daily. This lifestyle behavior pattern will lead to less health conditions and longer life span. If BMI greater than 25 weight watchers or dietary consult advised. Patient received above instructio ns, and questions have been answered. If you have any questions please call or respond to this email. Patient was made aware of the patient portal and may obtain a paper copy of today's plan if desired. Pap/hpv sent STD Screen declined Genetic Screen discussed Colon Screen na Dexa Screen na Routine Labs UTD PCPMammo ordered Dysmenorrhea [id number] N 94.6 Uses PRN Spasm of p elvic muscles around vagina [id number] N94.2 Uses PRN [id number] ASHLEY Shirley [facility] [address] [address] 09/21/2022 09:45:56 09/21/2022 14:57:48 Screening for malignant neoplasm of breast [id number] Z12.39 Suggested Calcium with Vitamin D 1200-1500m g daily. Patient advised to get an annual flu shot in the fall and she could obtain at [facility] or [facility] care clinic. Also to obtain TDap vaccinatio n if you have not had one in the last 10 years. Recommend yearly mammograms . Encouraged monthly self breast exams. Encourage safe sexual practices, to use condoms and limit partners if not already in a monogamous relationsh ip. Engage in daily exercise of low impact aerobic exercise 45-60 minutes 4-5 times weekly. Avoid tobacco and illicit drugs as well as using moderation with alcohol intake less than 1-2 8 oz beverages daily. This lifestyle behavior pattern will lead to less health conditions and longer life span. If BMI greater than 25 weight watchers or dietary consult advised. All questions have been answered. Patient appears to understand informatio n, but if you have any questions please call or respond to this email. WWEBC - BTL/ablati onno hx of abnormal papspap updatedSTI testing sentmammog tarun order givenUTD with PCP for routine labs Discussed chronic pelvic pain/fibro ids. Salena weldon MD consult, she is interested in hysterecto my. Scheduled with Dr. Crane at [facility]. Records request sent to Dave for copy of recent pelvic u/s. Gynecologi c examination [id number] Z01.419 Chronic pe lvic pain of female [id number] R10.2 Uterine leiomyoma 545303 05 D25.9 [id number] Zelalem Crane MD [facility] [address] [address] 09/22/2022 11:11:32 09/22/2022 12:06:06 Cyst of uterus 684142 N88.8 This patient is a 42-year-ol d female who presents for crampy pelvic pain. The pain is severely intense. She likens it to labor. The patient was imaged in the emergency department shows has a cavitary cystic lesion within the myometrium . Talked about diagnostic possibilit ies. Talked about ruling out malignancy . Patient needs hysterecto my after malignancy is ruled out. We talked about hysterecto my. Talked about oophorecto my. Spent 40 minutes face-to-fa ce. Made a decision to perform hysterosco py. With 50% of our visit was counseling . Will proceed with hysterosco py D&C. [id number] Zelalem Crane MD [facility] [address] [address] 11/03/2022 09:37:12 11/03/2022 09:38:58 [id number] Zelalem Crane MD [facility] [address],[facility] [place] [address] 11/10/2022 11:27:05 11/10/2022 12:31:15 Mass of uterus [id number] 02398 N85.8 This patient is a 42-year-ol d female with pelvic pain and uterine mass. Attempted to diagnose nature pelvic mass. Hysterosco py was performed. The lower uterine segment the uterus obliterati ng the mass could not be visualized a biopsy. Discussed treatment with patient. We agreed to perform total hysterecto my. We agreed to perform robotic assisted hysterecto my with bilateral salpingect nathaniel. She understand s the procedure. We will be moving forward with hysterecto my. Spent 40 minutes face-to-fa ce. Made more than 50% was counseling . Made a decision to perform surgery. We discussed surgery And the surroundin g issues in great detail Uterine leiomyoma 172173 05 D25.9 Pain in pelvis [id number] R10.2 [id number] Zelalem Crane MD [facility] [address] [address] 12/28/2022 15:39:16 12/28/2022 18:47:37 Pain in pelvis 51291014 R10.2 Uterine leiomyoma 863373 05 D25.9 42-year-ol d with pelvic pain and uterine fibroids. We have agreed to perform total robotic assisted hysterecto my with bilateral salpingect nathaniel. She understand s the risks, benefits, and alternativ es. She is completed the informed consent process and is ready to proceed. [id number] Zelalem Crane MD [facility] [address] [address] 01/11/2023 14:03:12 01/12/2023 08:50:57 Postoperative care [id number] Z48.89 female Patient presents for postop follow-up. She is 1 week postop from a total laparoscop ic hysterecto my bilateral salpingect nathaniel. She has no complaints . Her incisions are clean dry and intact. She is recovering normally. She will follow-up as needed. [id number] Zelalem Crane MD [facility] [address] [address] 01/19/2023 12:34:35 01/19/2023 12:36:53 Health Concerns Section Related Observation LastModified by Organization Detai ls LastModified Time None Recorded Concern Status LastModified by Organization Details LastModified Time None Recorded Advance Directives Directive None Recorded Payers Insurance Date Sequence Insurance Name Policy Number Policy Rivas Covered Member ID Rivas Member ID Guarantor Name 09/22/2023 1 [place] [employer]MENT [place]ID Mila Munoz [id number] Mila Munoz 10/27/2020 1 [facility] - DOS PRIOR TO 2020 (MEDICAID REPLACEMENT - HMO) Mila Munoz [id number] Mila Palmer Tammy 09/22/2023 1 [employer] [facility] - DOS ON OR AFTER 20 (MEDICAID REPLACEMENT - HMO) Mila Munoz [id number] Mila Palmer Tammy Notes Date Note Type Note Provider Name and Address Organization Details Recorded Time 11/10/2022 text/html This patient is a 42-year-old female with pelvic pain and uterine mass. Attempted to diagnose nature pelvic mass. Hysteroscopy was performed. The lower uterine segment the uterus obliterating the mass could not be visualized a biopsy. Discussed treatment with patient. We agreed to perform total hysterectomy. We agreed to perform robotic assisted hysterectomy with bilateral salpingectomy. She understands the procedure. We will be moving forward with hysterectomy. Spent 40 minutes [id number]. Made more than 50% was counseling. Made a decision to perform surgery. We discussed surgery And the surrounding issues in great detail Zelalem Crane MD [address], [place], [address], [facility] 11/10/2022 12:23:14 12/28/2022 text/html 42-year-old female with pelvic pain and uterine fibroids. We have agreed to perform robotic hysterectomy with bilateral salpingectomy. The patient understands the procedure. The procedure was described to the patient in great detail. the patient also understands the risks. The risks were also explained in detail. She understands that injuries May occur during surgery. She understands these injuries can result in hospitalization, more surgery, and severe illness. She understands there is risk of hemorrhage and infection. Zelalem Crane MD [address], [place], [address], [facility] 12/28/2022 18:47:23 01/11/2023 text/html female Patient presents for postop follow-up. She is 1 week postop from a total laparoscopic hysterectomy bilateral salpingectomy. She has no complaints. Her incisions are clean dry and intact. She is recovering normally. She will follow-up as needed. Zelalem Crane MD [address], [place], [address], [place] [facility] 01/11/2023 20:06:28 OBGyn Episode Ob Episode Information Episode Created Date Number of Fetuses Patient Bloodtype Patient rh Status Prepregnancy Weight lbs Domestic Partner Domestic Partner Phone Father Name Logistics Planning Manager Status 08/08/19 20 1 CLOSED Fetus Data First Name Last Name Admitted to NICU Weight (g) Sex Living Outcome Pediatric Complications Fetus ID Race Codes Race Delivery Type 3968.93 M Full Term 2537 Primary Hernandez Calculation Initial Hernandez Date Initial Exam Date Initial Exam Provider Initial Ultrasound Date Last Menstrual Period Date Ultra Sound Weeks Gestation 0 Eighteen To Twenty Week Hernandez Update Ultra Sound Date Fundal Height At Umbil Quickening Date Ultra Sound Latest Weeks Gestation Final Hernandez Confirmed By Final Hernandez Confirmed Date Final Hernandez Date Ultra Sound Latest Days Gestation 0 0 Menstrual History Last Menstrual Date Menses Monthly On Bcp Conception Prior Menses Frequency Hcg Plus Date Menarche Onset Age Delivery Information Delivery Date Delivery Type Labor Anesthesia Weeks Gestation Incision Type Labor Labor Length Hrs Delivered By Post Complications Tubal Sterilization Discharge Date Comments 6 40 polyhydr a mnios Discharge Information Feeding Method Contraceptive Method Maternal HG B and HCT Levels Ob Episode Information Episode Created Date Number of Fetuses Patient Bloodtype Patient rh Status Prepregnancy Weight lbs Domestic Partner Domestic Partner Phone Father Name Logistics Planning Manager Status 08/08/19 20 1 CLOSED Fetus Data First Name Last Name Admitted to NICU Weight (g) Sex Living Outcome Pediatric Complications Fetus ID Race Codes Race Delivery Type 4167.14 9704 M Full Term 2535 Vaginal Delivery Hernandez Calculation Initial Hernandez Date Initial Exam Date Initial Exam Provider Initial Ultrasound Date Last Menstrual Period Date Ultra Sound Weeks Gestation 0 Eighteen To Twenty Week Hernandez Update Ultra Sound Date Fundal Height At Umbil Quickening Date Ultra Sound Latest Weeks Gestation Final Hernandez Confirmed By Final Hernandez Confirmed Date Final Hernandez Date Ultra Sound Latest Days Gestation 0 0 Menstrual History Last Menstrual Date Menses Monthly On Bcp Conception Prior Menses Frequency Hcg Plus Date Menarche Onset Age Delivery Information Delivery Date Delivery Type Labor Anesthesia Weeks Gestation Incision Type Labor Labor Length Hrs Delivered By Post Complications Tubal Sterilization Discharge Date Comments 9 39 Discharge Information Feeding Method Contraceptive Method Maternal HG B and HCT Levels Ob Episode Information Episode Created Date Number of Fetuses Patient Bloodtype Patient rh Status Prepregnancy Weight lbs Domestic Partner Domestic Partner Phone Father Name Logistics Planning Manager Status 08/08/19 20 1 CLOSED Fetus Data First Name Last Name Admitted to NICU Weight (g) Sex Living Outcome Pediatric Complications Fetus ID Race Codes Race Delivery Type , Induced 2534 Hernandez Calculation Initial Hernandez Date Initial Exam Date Initial Exam Provider Initial Ultrasound Date Last Menstrual Period Date Ultra Sound Weeks Gestation 0 Eighteen To Twenty Week Hernandez Update Ultra Sound Date Fundal Height At Umbil Quickening Date Ultra Sound Latest Weeks Gestation Final Hernandez Confirmed By Final Hernandez Confirmed Date Final Hernandez Date Ultra Sound Latest Days Gestation 0 0 Menstrual History Last Menstrual Date Menses Monthly On Bcp Conception Prior Menses Frequency Hcg Plus Date Menarche Onset Age Delivery Information Delivery Date Delivery Type Labor Anesthesia Weeks Gestation Incision Type Labor Labor Length Hrs Delivered By Post Complications Tubal Sterilization Discharge Date Comments 2 Discharge Information Feeding Method Contraceptive Method Maternal HG B and HCT Levels Ob Episode Information Episode Created Date Number of Fetuses Patient Bloodtype Patient rh Status Prepregnancy Weight lbs Domestic Partner Domestic Partner Phone Father Name Logistics Planning Manager Status 08/08/19 20 1 CLOSED Fetus Data First Name Last Name Admitted to NICU Weight (g) Sex Living Outcome Pediatric Complications Fetus ID Race Codes Race Delivery Type , Induced 2536 Hernandez Calculation Initial Hernandez Date Initial Exam Date Initial Exam Provider Initial Ultrasound Date Last Menstrual Period Date Ultra Sound Weeks Gestation 0 Eighteen To Twenty Week Hernandez Update Ultra Sound Date Fundal Height At Umbil Quickening Date Ultra Sound Latest Weeks Gestation Final Hernandez Confirmed By Final Hernandez Confirmed Date Final Hernandez Date Ultra Sound Latest Days Gestation 0 0 Menstrual History Last Menstrual Date Menses Monthly On Bcp Conception Prior Menses Frequency Hcg Plus Date Menarche Onset Age Delivery Information Delivery Date Delivery Type Labor Anesthesia Weeks Gestation Incision Type Labor Labor Length Hrs Delivered By Post Complications Tubal Sterilization Discharge Date Comments 8 Discharge Information Feeding Method Contraceptive Method Maternal HG B and HCT Levels
[2024-12-10 11:13] LABS: Thyroid Stimulating Hormone Reflex 1.560 uIU/mL (0.465-4.68)
== END 2024-12-10 09:56 | disposition home or self-care (01) ==
LOC: ANHLAB 09:56
PROVIDERS: PCP Nurse Practitioner Family; Visit Provider Nurse Practitioner Family
DX: Z00.00 Encounter for general adult medical examination without abnormal findings (principal); Z13.29 Encounter for screening for other suspected endocrine disorder; Z13.0 Encounter for screening for diseases of the blood and blood-forming organs and certain disorders involving the immune mechanism; Z13.1 Encounter for screening for diabetes mellitus; Z13.6 Encounter for screening for cardiovascular disorders; R68.89 Other general symptoms and signs; Z86.39 Personal history of other endocrine, nutritional and metabolic disease
CPT/HCPCS: 36415; 80053; 80061; 81001; 83036; 84443; 85025; 87637